=== PATIENT | male | born 1940 | race Hispanic/Latino ===

== ENCOUNTER → 2018-01-30 | Outpatient (CLI) | payer OTHER ==
[~2018-01-30] MED LIST: ACET-66 PO; AMLO10TA2 PO; FOLI1TAB85 PO; FURO40TA5 PO; INDO25CA16 PO; LOPE2 PO; LOSA100T29 PO; POTA10CA44 PO; PRAV40TA3 PO
== END | disposition home or self-care (01) ==
LOC: RAH 14:40
PROVIDERS: ATTEND Nurse Practitioner Family
DX: M47.26 Other spondylosis with radiculopathy, lumbar region (principal); M51.16 Intervertebral disc disorders with radiculopathy, lumbar region; M48.061 Spinal stenosis, lumbar region without neurogenic claudication; M25.551 Pain in right hip; M25.552 Pain in left hip; K57.30 Diverticulosis of large intestine without perforation or abscess without bleeding; I12.9 Hypertensive chronic kidney disease with stage 1 through stage 4 chronic kidney disease, or unspecified chronic kidney disease; N18.3 Chronic kidney disease, stage 3 (moderate); K21.9 Gastro-esophageal reflux disease without esophagitis
CPT/HCPCS: 72148; 73700

== ENCOUNTER → 2018-05-18 | Outpatient (CLI) | payer OTHER ==
[~2018-05-18] MED LIST changes: -AMLO10TA2 PO; +AMLO10TA6 PO; +LOSA100T20 PO; -LOSA100T29 PO
== END | disposition home or self-care (01) ==
LOC: RAH 07:56
PROVIDERS: ATTEND Nurse Practitioner
DX: R10.10 Upper abdominal pain, unspecified (principal)
CPT/HCPCS: 74181

== ENCOUNTER → 2018-06-25 | Outpatient (CLI) | payer OTHER | END | disposition home or self-care (01) | LOC: RAH 12:05 | PROVIDERS: ATTEND Nurse Practitioner | DX: M25.78 Osteophyte, vertebrae (principal); I10 Essential (primary) hypertension; K21.9 Gastro-esophageal reflux disease without esophagitis | CPT/HCPCS: 72100 ==

== ENCOUNTER → 2022-09-08 | Outpatient (CLI) | payer OTHER ==
[~2022-09-08] MED LIST changes: +AMLO-258 PO; -AMLO10TA6 PO; +INDO-15 PO; -INDO25CA16 PO; -LOSA100T20 PO; +LOSA100T58 PO; -POTA10CA44 PO; +POTA10CA45 PO
== END | disposition home or self-care (01) ==
LOC: SHCH 08:30
PROVIDERS: ATTEND Student in an Organized Health Care Education/Training Program
DX: I07.1 Rheumatic tricuspid insufficiency (principal); R00.2 Palpitations
CPT/HCPCS: 93306

== ENCOUNTER → 2022-09-22 | Outpatient (CLI) | payer OTHER ==
[2022-09-22 16:45] LABS: ALBUMIN 3.3 g/dL (3.5-5.0); CREATININE 4.7 mg/dL (0.5-1.5); POTASSIUM 3.9 mmol/L (3.5-5.1); TOTAL PROTEIN, SERUM 6.9 g/dL (6.0-8.3)
== END | disposition home or self-care (01) ==
LOC: LAB 13:32
PROVIDERS: ATTEND Student in an Organized Health Care Education/Training Program
DX: I10 Essential (primary) hypertension (principal)
CPT/HCPCS: 36415; 80053

== ENCOUNTER 2025-05-05 09:28 | Inpatient (IN) | payer OTHER ==
[2025-05-05] VITALS (12 sets, daily range): BP systolic 105–142; BP diastolic 36–54; PULSE 68–79; RESP 16–18; TEMP 97.7
[~2025-05-05] VITALS: Ht 162.6 cm; Wt 68.0 kg
[~2025-05-05 09:28] MED LIST changes: -LOSA100T58 PO; +LOSA100T59 PO; -POTA10CA45 PO; +POTA10CA95 PO; -PRAV40TA3 PO; +PRAV40TA62 PO
[2025-05-05 10:15] LABS: IMMATURE GRANULOCYTE ABSOLUTE 0.13 K/uL (0-1); NUCLEATED RED BLOOD CELLS 0.0 % (0.0-0.19); PLATELET COUNT (AUTO) 112 K/uL (130-400); RED BLOOD CELL COUNT(AUTO) 2.83 MIL/uL (4.50-6.20); RED CELL DISTRIBUTION WIDTH 14.3 % (11.0-15.5); WHITE BLOOD COUNT (AUTO) 18.8 K/uL (4.8-10.8)
[2025-05-05 10:29] LABS: GLOMERULAR FILTR. RATE CALC 5.0 mL/min (>90); GLUCOSE,RANDOM 79.0 mg/dL (70-105); SODIUM SERUM 129.0 mmol/L (136-145); UREA NITROGEN, BLOOD 63.0 mg/dL (7-18)
[2025-05-05 10:31] LABS: CREATININE 9.9 mg/dL (0.5-1.3)
[2025-05-05] MEDS: ZOSYN 3.375GM +NS 50ML IV STA (11:08)
[2025-05-05] MEDS: 0.9% NACL 250ML 250 ML IV ONE (11:10)
--- NOTE | 2025-05-05 11:12 | EKG ---
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
[2025-05-05 11:36] LABS: LACTATE DEHYDROGENASE 971.0 U/L (81-234); LYMPHOCYTES % (MANUAL) 36 % (22-44); MAN.DIFF COMMENT-IMPRESSION MANUAL DIFFERENTIAL; MONOCYTES % (MANUAL) 4 % (2-9); REACTIVE LYMPHOCYTES 4 % (0-0); SEGMENTED NEUTROPHILS % 56 % (40-70)
[2025-05-05 11:37] LABS: PLATELET MORPHOLOGY COMMENT SLIGHTLY DECREASED
[2025-05-05 11:45] LABS: ASPARTATE AMINOTRANSFERASE 114.0 U/L (10-37); CREATINE KINASE, TOTAL 63.0 U/L (21-232); TOTAL PROTEIN, SERUM 7.6 g/dL (6.0-8.3)
--- NOTE | 2025-05-05 11:46 | NUR ---
DR CHARLES WAS IN TO SEE/ASSESS THE PT.
[2025-05-05] MEDS ORDERED: RENAL DOSE IV SCH (12:00)
[2025-05-05] MEDS ORDERED: VANCOMYCIN PROTOCOL PER PHARMACY IV SCH (12:00)
[2025-05-05 12:01] LABS: INR 1.31 (0.85-1.15)
--- NOTE | 2025-05-05 12:02 | HMCIMG ---
EXAM: CR Chest, 1 View. CLINICAL HISTORY: fever COMPARISON: None provided. FINDINGS: Vascular stent overlies the left subclavian vessel. LUNGS: There is no mass, infiltrate, or acute pulmonary abnormality. PLEURAL SPACES: No evidence of pleural effusion or pneumothorax. MEDIASTINUM: Cardiac size and mediastinal contours within normal limits. BONES: No aggressive appearing osseous lesion seen. IMPRESSION: No acute cardiopulmonary pathology is evident. /[place]
--- NOTE | 2025-05-05 12:17 | HP ---
[facility] HISTORY [facility] PHYSICAL Date of Service: May 05, 2025 Time of Service: 12:06 HISTORY OF PRESENT ILLNESS: Date of service: 05/05/2025, patient was seen in ER room one This is a 85-year-old male with underlying history of ESRD, hypertension, hyperlipidemia, anemia, who presented to the ER for further evaluation of generalized weakness, fevers since April 28, poor oral intake, and generalized debility ongoing for about a week. Patient's son was present at bedside who assisted with further history, son states that since patient's birthday about a week ago he has been having daily fevers, poor oral intake, congestion, diarrhea and increased debility. He states that last month, patient fell and had a suspected right patellar fracture which is being treated conservatively by orthopedist as outpatient. Has noticed that he has been having progressive lower extremity swelling and has been needing to use of walker to ambulate. Son reports that patient has been having 3-4 episodes of loose stool. Denies recent use of antibiotics. Patient was seen in [facility] ER several days ago where he was noted to be negative for flu and COVID and urinalysis he was told was also negative. Son reports that patient has been having left groin pain as well as possible ur ethral discharge as well. Patient has been maintained on Monday, , Monday dialysis session. His last session of dialysis was on Monday last week. Patient denies significant shortness of breath or productive cough. Son reports that legs have been significantly swollen as well. Patient is followed by Dr. Sharp as outpatient with Cardiology and has been upcoming appointment for a possible stress test. He is also being followed by [place] physician and is supposed to have a bone scan done as outpatient. Denies being previously diagnosed with malignancy. On presentation to the hospital, patient was noted to be febrile with T-max of 101.5 F, heart rate of 81, blood pressure of 154/63. [place] [address], hemoglobin of 10.1, platelet count of 196312, MCV of 106.4. BMP showed sodium of 129, potassium 3.4, chloride of 9100, BUN of 63, creatinine of 9.9. Liver function tests showed total bilirubin of 1.9, AST of 114, ALT of 65, alkaline phosphatase of 152, LDH of 971. Chest x-ray showed no acute infiltrates. Patient will be admitted for further treatment and management of sepsis, we will assess further source of sepsis pending urinalysis, we will also obtain a CT of the abdomen pelvis for further evaluation. We will see how patient progresses over the next 72 hours. Patient is very debilitated over the last one week and we will have case management assess for further discharge planning. Son has requested full interventions for the patient. REVIEW OF SYSTEMS CONSTITUTIONAL: Fevers, chills, malaise, poor oral intake NEUROLOGICAL: Generalized weakness, reports having had a fall about a month ago ENT: No hearing loss, otalgia, otorrhea, rhinitis, rhinorrhea, hoarseness, or sore throat. CARDIOVASCULAR: Denies any exertional angina, dyspnea on exertion, orthopnea, paroxysmal nocturnal dyspnea, palpitations, life-threatening arrhythmias, claudication. PULMONARY: No active shortness of breath, mild shortness of breath last couple of days SLEEP: Denies morning headaches, daytime somnolence or napping. Denies d ifficulty falling asleep, staying asleep, waking from sleep. Denies knowledge of snoring. GASTROINTESTINAL: Reports having loose stool, no significant abdominal pain GENITOURINARY: Reports having urinary urgency ENDOCRINOLOGIC: Denies polyuria, polydipsia, polyphagia or heat/cold intolerances. HEMATOLOGIC: Reports having bruising ONCOLOGIC: Denies personal history of malignancy. DERMATOLOGIC: Significant bilateral lower extremity swelling PSYCHIATRIC: Denies any suicidal or homicidal ideation. Denies hallucinations. PAST MEDICAL HISTORY: ESRD, hypertension, hyperlipidemia, anemia, recent history of sacral decubitus ulcer PAST SURGICAL HISTORY: History of cholecystectomy PAST SOCIAL HISTORY: Denies active smoking or alcohol consumption, patient has been debilitated over the last one week and has been mostly in bed, uses a walker to ambulate FAMILY HISTORY: Denies pertinent family history Allergies: No known drug allergies Home medications: Family will be bringing list of home medications to be reconciled and updated, patient reports being on lisinopril 20 mg daily, metoprolol succinate 50 mg daily as well Coded Allergies: No Known Drug Allergies (Unverified Allergy, Unknown, 05/05/25) PHYSICAL EXAM GENERAL APPEARANCE: The patient is awake, alert, and oriented, in no acute cardiopulmonary distress. NEUROLOGICAL: Cranial nerves II-XII grossly intact. Motor is 5/5 in bilateral upper and lower extremities proximal to distal. No sensory deficits. HEENT: Face is symmetric. Pupils are equal and reactive. Extraocular movements are intact. NECK: Supple. No JVD. No thyromegaly. No submental, submandibular, pre- /postauricular, occipital or supraclavicular lymphadenopathy. CHEST: Normal chest expansion. No Telemetry. LUNGS: Absence of any rales, rhonchi or any wheezing. CARDIOVASCULAR: Regular. S1 and S2 normal. Murmur noted on 2nd right upper sternal longer ABDOMEN: Soft, nontender, and nondistended. There is no rebound, voluntary guarding, or rigidity. : Deferred. No Bernal. EXTREMITIES: Both lower extremities are edematous with 2+ pitting edema SKIN: Son reports having history of sacral ulcer as well Vital Sign (Last 24 Hours) 05/05/25 10:42 Temp 97.9 Pulse 78 Resp 18 B/P (MAP) 141/62 Pulse Ox 96 O2 Delivery Room Air* O2 Flow Rate 0 FiO2 21 LABS: Laboratory: Test 05/05/25 10:40 05/05/25 10:06 Range/Units SARS-CoV-2 Antigen (Rapid) PRESUMPTIVE NEGATIVE NEGATIVE White Blood Count 18.8 H 4.8-10.8 K/uL Red Blood Count 2.83 L 4.50-6.20 MIL/uL Hemoglobin 10.1 L 14.0-18.0 g/dL Hematocrit 30.1 L 42-54 % Mean Corpuscular Volume 106.4 H 79-99 fL Mean Corpuscular Hemoglobin 35.7 H 27.0-33.0 pg Mean Corpuscular Hemoglobin Concent 33.6 32.0-36.0 g/dL Red Cell Distribution Width 14.3 11.0-15.5 % Platelet Count 112 L 130-400 K/uL Mean Platelet Volume 11.4 H 7.5-10.5 fL Immature Granulocyte % (Auto) 0.7 0-1 % Neutrophils (%) (Auto) 39.5 L 40.0-77.0 % Lymphocytes (%) (Auto) 47.1 21.0-51.0 % Monocytes (%) (Auto) 10.2 3.0-13.0 % Eosinophils (%) (Auto) 1.2 0.0-8.0 % Basophils (%) (Auto) 1.3 0.0-5.0 % Neutrophils # (Auto) 7.4 1.8-7.7 K/uL Lymphocytes # (Auto) 8.8 H 1.0-4.8 K/uL Monocytes # (Auto) 1.9 H 0.1-1.0 K/uL Eosinophils # (Auto) 0.22 0.00-0.70 K/uL Basophils # (Auto) 0.24 H 0.00-0.20 K/uL Absolute Immature Granulocyte (auto 0.13 0-1 K/uL Segmented Neutrophils % 56 40-70 % Lymphocytes % (Manual) 36 22-44 % Monocytes % (Manual) 4 2-9 % Nucleated Red Blood Cells 0.0 0.0-0.19 % Differential Comment MANUAL DIFFERENTIAL Reactive Lymphocytes 4 H 0-0 % White Cell Morphology Comment See comments Platelet Morphology Comment SLIGHTLY DECREASED Red Blood Cell Morphology MACROCYTIC 1+ Erythrocyte Sedimentation Rate 26 H 0-20 MM/HR Prothrombin Time 13.5 H 9.6-11.6 SEC Prothromb Time International Ratio 1.31 H 0.85-1.15 Activated Partial Thromboplast Time 39.7 H 26.3-35.5 SEC Sodium Level 129 L 136-145 mmol/L Potassium Level 3.4 L 3.5-5.1 mmol/L Chloride Level 91 L 101-111 mmol/L Carbon Dioxide Level 27 21-32 mmol/L Blood Urea Nitrogen 63 H 7-18 mg/dL Creatinine 9.9 *H 0.5-1.3 mg/dL Glomerular Filtration Rate Calc 5 >90 mL/min Random Glucose 79 70-105 mg/dL Lactic Acid Level 2.3 0.8-2.5 mmol/L Total Calcium 8.4 L 8.5-10.1 mg/dL Total Bilirubin 1.9 H 0.2-1.0 mg/dL Direct Bilirubin 1.1 H 0.0-0.3 mg/dL Aspartate Amino Transf (AST/SGOT) 114 H 10-37 U/L Alanine Aminotransferase (ALT/SGPT) 65 12-78 U/L Alkaline Phosphatase 152 H 50-136 U/L Lactate Dehydrogenase 971 H 81-234 U/L Total Creatine Kinase 63 21-232 U/L Troponin I High Sensitivity 39 4-75 ng/L C-Reactive Protein, Quantitative 108.00 H 0.5-3.0 mg/L Total Protein 7.6 6.0-8.3 g/dL Albumin 2.7 L 3.5-5.0 g/dL Procalcitonin 4.00 H 0.05-0.5 ng/mL Current Medications Medications (Trade) Dose Ordered Sig/Preeti Route PRN Reason Start Time Stop Time Status Last Admin Dose Admin Acetaminophen (TYLenol 325MG TAB) 650 mg Q6H PRN PO MILD PAIN (1-3) 05/05/25 12:00 06/04/25 11:59 Famotidine (Pepcid 20mg Tab) 20 mg Q48H PO 05/05/25 21:00 06/04/25 20:59 Heparin Sodium (Porcine) (HEParin 5,000 UNIT VIAL) 5,000 unit BID SQ 05/05/25 21:00 06/04/25 20:59 Ondansetron HCl (zoFRAN 4MG INJ) 4 mg Q6H PRN IVP NAUSEA/VOMITING 05/05/25 12:00 06/04/25 11:59 Piperacillin Sod/ Tazobactam Sod (Zosyn 3.375gm+NS 50ml) 3.375 gm ONCE STAT IV 05/05/25 09:47 05/05/25 10:52 DC 05/05/25 11:08 3.375 GM Piperacillin Sod/ Tazobactam Sod (Zosyn 3.375gm+NS 50ml) 3.375 gm Q12H IVPB 05/05/25 22:00 05/15/25 21:59 Vancomycin HCl (Vancomycin Protocol) 1 each AD IV 05/05/25 12:00 05/19/25 11:59 UNV Vitamin B Complex/ Vit C/Folic Acid (Nephrovite Tablet) 1 cap DAILY PO 05/06/25 09:00 06/05/25 08:59 DIAGNOSTICS / RADIOLOGY: Chest x-ray Shows no acute infiltrate ASSESSMENT: Sepsis, POA Thrombocytopenia, mild, POA Anemia of renal failure, POA Macrocytosis, POA Hyponatremia, POA Hypokalemia, POA For hepatitis, mild, POA Sacral decubitus ulcer, POA Significant leukocytosis, POA Significant debility/frailty/deconditioning, POA Bilateral lower extremity edema, rule out DVT, POA Recent history of right knee patellar fracture, POA Rule out active urinary tract infection, POA Acute diarrhea, POA Underlying history of ESRD missing last two sessions of hemodialysis as outpatient, POA Hypertension, POA Hyperlipidemia, POA Cardiac murmur, POA PLAN: Patient will be admitted to cardiac telemetry floor We will start broad-spectrum antibiotics with vancomycin/Zosyn Follow up results of blood culture, urinalysis, urine culture, C diff panel/GI PCR panel We will follow up CT abdomen pelvis without contrast for further evaluation of left groin pain as well as diarrhea Minimize IV fluids due to ESRD status and patient has not received last two hemodialysis session as outpatient We we will request consultation with Nephrology We will request consultation with Infectious Disease, Hematology, and wound care We will obtain a bilateral lower extremity venous ultrasound, to rule out DVT We will obtain a 2D echocardiogram, to assess for valvulopathy and assess LV EF Home medications were reconciled and updated Patient is very debilitated, we will request physical therapy consultation, son has stated that patient previously has declined any rehab or SNF, we will have case management assist with discharge planning/discharge needs Patient will be turned q.2 hours, patient will be placed on air bed, wound care consult will be requested for patient's history of sacral decubitus ulcer We will labs will be repeated in the morning All antibiotics were renally dosed We will keep patient on DVT prophylaxis with heparin, GI prophylaxis with Pepcid Reports we will patient is supposed to have a outpatient bone scan done, denies being diagnosed with previous history of malignancy, we will have Dr. Landers follow up with the patient Prognosis: Guarded Plan of care was discussed with patient's son at bedside, Manuel Rayo MD Advanced Care Planning: Which of the following were discussed: Hospice care: Yes __ No _X_ Therapeutic options: Yes _X_ No __ Advance directives: Yes _X_ No __ Other discussions: Discussed with who?: Patient Voluntary nature of this service was explained to the patient? Yes _x_ No __ Amount of time spent: 20 minutes MANUEL RAYO MD May 05, 2025 12:16
--- NOTE | 2025-05-05 12:40 | HMCIMG ---
EXAM: CT Head Without IV contrast. CLINICAL HISTORY: recent fall last month, sepsis, weakness TECHNIQUE: Axial computed tomography images of the head/brain without intravenous contrast. COMPARISON: None provided. FINDINGS: BRAIN: No evidence of acute hemorrhage. No mass lesion. No CT evidence for acute territorial infarct. No midline shift or extra-axial collections. Generalized cerebral atrophy with chronic white matter ischemic changes VENTRICLES: No hydrocephalus. ORBITS: The orbits are unremarkable. SINUSES AND MASTOIDS: The paranasal sinuses and mastoid air cells are clear. BONES: No fracture. SOFT TISSUES: Unremarkable. IMPRESSION: 1. No acute intracranial findings. 2. Chronic ischemic and atrophic changes. /[place]
--- NOTE | 2025-05-05 12:50 | NUR ---
DR MOORE HEMATOLOGY AT BEDSIDE FOR CONSULT
--- NOTE | 2025-05-05 13:00 | NUR ---
EPISODE OF DIARRHEA
--- NOTE | 2025-05-05 13:19 | HMCIMG ---
EXAM: CT Abdomen and Pelvis Without IV contrast CLINICAL HISTORY: sepsis, left groin pain, diarrhea, Hx of ESRD TECHNIQUE: Axial computed tomography images of the abdomen and pelvis without intravenous contrast. CONTRAST: No IV contrast. COMPARISON: None provided. FINDINGS: LUNG BASES: The lung bases appear clear. No pleural effusions are seen. LIVER: The liver is enlarged in size measuring approximately 17 cm GALLBLADDER AND BILE DUCTS: No biliary ductal dilatation is evident. Post-cholecystectomy status. PANCREAS: Unremarkable. SPLEEN: Unremarkable. ADRENAL GLANDS: Unremarkable. KIDNEYS, URETERS, AND BLADDER: There is no hydronephrosis or hydroureter. No urinary calculi are seen. Both kidney is small in size. The right kidney measures approximately 6.5 x 3.5 mm The left kidney measures approximately 7.5 x 4 cm. Mild smooth circumferential thickening in the urinary bladder wall measuring approximately 4 mm suggests cystitis Subcentimeter-sized simple cortical cyst in both kidneys. STOMACH AND BOWEL: Unremarkable appearance of the stomach. No evidence of bowel obstruction. No evidence suggesting enteritis or colitis. Diverticula in the third part of the duodenum measuring approximately 3.5 x 2.5 cm. Diverticulae in the descending and sigmoid colon. APPENDIX: No evidence of acute appendicitis on CT examination. PERITONEUM: No free fluid. No free air. LYMPH NODES: No lymphadenopathy is evident. REPRODUCTIVE: The prostate gland is enlarged in size, measuring approximately 4.9 x 3.7 x 4.6 cm, volume of approximately 43.4 cc VASCULATURE: No evidence of abdominal aortic aneurysm. BONES: No aggressive appearing osseous lesion. No acute osseous pathology evident. Degenerative changes in the spine, more pronounced at L1-L2 Mild levoscoliosis IMPRESSION: 1. No acute intra-abdominal or pelvic pathology. 2. Bilateral small kidneys, suggestive of chronic renal disease. 3. Mild bladder wall thickening, possibly representing cystitis. 4. Duodenal diverticulum in the third part, measuring approximately 3.5 x 2.5 cm. /[place]
--- NOTE | 2025-05-05 13:56 | NUR ---
DR MCGEE AT BEDSIDE FOR NEPRHO CONSULT
[2025-05-05] MEDS: VANCOMYCIN 1.25 GM/250 ML BAG 250 ML IV ONE (14:10)
--- NOTE | 2025-05-05 14:11 | HMCIMG ---
EXAM: US for Deep Venous Thrombosis, bilateral Lower Extremity. CLINICAL HISTORY: Leg Pain and Swelling TECHNIQUE: Real-time ultrasound scan of the veins of the bilateral lower extremity with color Doppler flow, spectral waveform analysis and compression. COMPARISON: None provided. FINDINGS: DEEP VEINS: Echogenic content within the left popliteal vein with loss of compressibility, suggestive of thrombosis. The bilateral common femoral, superficial femoral, and the right popliteal veins are echolucent and compressible. The visualized calf veins appear patent. SOFT TISSUES: No popliteal fossa cyst or other abnormalities. IMPRESSION: 1. Left popliteal vein thrombosis. /[place]
--- NOTE | 2025-05-05 14:16 | CONS ---
CONSULT NOTE: This is a 85-year-old male with underlying history of ESRD, hypertension, hyperlipidemia, anemia, who presented to the ER for further evaluation of generalized weakness, fevers since April 28, poor oral intake, and generalized debility ongoing for about a week. Patient's son was present at bedside who assisted with further history, son states that since patient's birthday about a week ago he has been having daily fevers, poor oral intake, congestion, diarrhea and increased debility. He states that last month, patient fell and had a suspected right patellar fracture which is being treated conservatively by orthopedist as outpatient. Has noticed that he has been having progressive lower extremity swelling and has been needing to use of walker to ambulate. Son reports that patient has been having 3-4 episodes of loose stool. Denies recent use of antibiotics. Patient was seen in [facility] ER several days ago where he was noted to be negative for flu and COVID and urinalysis he was told was also negative. Son reports that patient has been having left groin pain as well as possible urethral discharge as well. Patient has been maintained on Monday, , Monday dialysis session. His last session of dialysis was on Monday last week. Patient denies significant shortness of breath or productive cough. Son reports that legs have been significantly swollen as well. Patient is followed by Dr. Sharp as outpatient with Cardiology and has been upcoming appointment for a possible stress test. He is also being followed by [place] physician and is supposed to have a bone scan done as outpatient. Denies being previously diagnosed with malignancy. REVIEW OF SYSTEMS CONSTITUTIONAL: Fevers, chills, malaise, poor oral intake NEUROLOGICAL: Generalized weakness, reports having had a fall about a month ago ENT: No hearing loss, otalgia, otorrhea, rhinitis, rhinorrhea, hoarseness, or sore throat. CARDIOVASCULAR: Denies any exertional angina, dyspnea on exertion, orthopnea, paroxysmal nocturnal dyspnea, palpitations, life-threatening arrhythmias, claudication. PULMONARY: No active shortness of breath, mild shortness of breath last couple of days SLEEP: Denies morning headaches, daytime somnolence or napping. Denies difficulty falling asleep, staying asleep, waking from sleep. Denies knowledge of snoring. GASTROINTESTINAL: Reports having loose stool, no significant abdominal pain GENITOURINARY: Reports having urinary urgency ENDOCRINOLOGIC: Denies polyuria, polydipsia, polyphagia or heat/cold intolerances. HEMATOLOGIC: Reports having bruising ONCOLOGIC: Denies personal history of malignancy. DERMATOLOGIC: Significant bilateral lower extremity swelling PSYCHIATRIC: Denies any suicidal or homicidal ideation. Denies hallucinations. PAST MEDICAL HISTORY: ESRD, hypertension, hyperlipidemia, anemia, recent history of sacral decubitus ulcer PAST SURGICAL HISTORY: History of cholecystectomy PAST SOCIAL HISTORY: Denies active smoking or alcohol consumption, patient has been debilitated over the last one week and has been mostly in bed, uses a walker to ambulate FAMILY HISTORY: Denies pertinent family history Allergies: No known drug allergies Home medications: Family will be bringing list of home medications to be reconciled and updated, patient reports being on lisinopril 20 mg daily, metoprolol succinate 50 mg daily as well Coded Allergies: No Known Drug Allergies (Unverified Allergy, Unknown, 05/05/25) PHYSICAL EXAM GENERAL APPEARANCE: The patient is awake, alert, and oriented, in no acute cardiopulmonary distress. NEUROLOGICAL: Cranial nerves II-XII grossly intact. Motor is 5/5 in bilateral upper and lower extremities proximal to distal. No sensory deficits. HEENT: Face is symmetric. Pupils are equal and reactive. Extraocular movements are intact. NECK: Supple. No JVD. No thyromegaly. No submental, submandibular, pre- /postauricular, occipital or supraclavicular lymphadenopathy. CHEST: Normal chest expansion. No Telemetry. LUNGS: Absence of any rales, rhonchi or any wheezing. CARDIOVASCULAR: Regular. S1 and S2 normal. Murmur noted on 2nd right upper sternal longer ABDOMEN: Soft, nontender, and nondistended. There is no rebound, voluntary guarding, or rigidity. : Deferred. No Bernal. EXTREMITIES: Both lower extremities are edematous with 2+ pitting edema SKIN: Son reports having history of sacral ulcer as well Assessment 1. Anemia 2. Mild thrombocytopenia 3. Chronic renal failure with the patient on hemodialysis 4. Leukocytosis 5. Lower extremity edema bilaterally suspicious for possible DVT 6. Hypertension 7. Hyperlipidemia Plan 1. Peripheral blood smear showed red blood cells to be normocytic normochromic. There was no fragment cell or schistocyte. There is no teardrop cell. There is no pelger-Huet cell. White blood cell with no blasts. Manual platelet count is normal 2. There was hypersegmented neutrophils. This patient to be started on folic acid 1 mg p.o. daily and vitamin B12 1000 mcg p.o. daily. 3. There is rouleaux phenomena. We will ask for SPEP, and free light chain. If there is monoclonal protein we will do a bone marrow biopsy. 4. Doppler ultrasound was done. If the patient have DVTs this patient could be started on heparin drip. 5. Continue antibiotic treatment as per primary 6. It seems the patient was found to have some lesion to the bone. [facility] see if [facility] could give me more information about that. This could be may be due to multiple myeloma so we will be follow-up with the result of SPEP and free light chain. There is no need for UPEP especially with the patient on hemodialysis. 7. If the patient did not have [facility] with the [facility] maybe we could ask for 1 to be done here. Laboratory Tests Test 05/05/25 10:06 05/05/25 10:40 05/05/25 13:40 White Blood Count 18.8 K/uL (4.8-10.8) H Red Blood Count 2.83 MIL/uL (4.50-6.20) L Hemoglobin 10.1 g/dL (14.0-18.0) L Hematocrit 30.1 % (42-54) L Mean Corpuscular Volume 106.4 fL (79-99) H Mean Corpuscular Hemoglobin 35.7 pg (27.0-33.0) H Mean Corpuscular Hemoglobin Concent 33.6 g/dL (32.0-36.0) Red Cell Distribution Width 14.3 % (11.0-15.5) Platelet Count 112 K/uL (130-400) L Mean Platelet Volume 11.4 fL (7.5-10.5) H Immature Granulocyte % (Auto) 0.7 % (0-1) Neutrophils (%) (Auto) 39.5 % (40.0-77.0) L Lymphocytes (%) (Auto) 47.1 % (21.0-51.0) Monocytes (%) (Auto) 10.2 % (3.0-13.0) Eosinophils (%) (Auto) 1.2 % (0.0-8.0) Basophils (%) (Auto) 1.3 % (0.0-5.0) Neutrophils # (Auto) 7.4 K/uL (1.8-7.7) Lymphocytes # (Auto) 8.8 K/uL (1.0-4.8) H Monocytes # (Auto) 1.9 K/uL (0.1-1.0) H Eosinophils # (Auto) 0.22 K/uL (0.00-0.70) Basophils # (Auto) 0.24 K/uL (0.00-0.20) H Absolute Immature Granulocyte (auto 0.13 K/uL (0-1) Segmented Neutrophils % 56 % (40-70) Lymphocytes % (Manual) 36 % (22-44) Monocytes % (Manual) 4 % (2-9) Nucleated Red Blood Cells 0.0 % (0.0-0.19) Differential Comment MANUAL DIFFERENTIAL Reactive Lymphocytes 4 % (0-0) H White Cell Morphology Comment See comments Platelet Morphology Comment SLIGHTLY DECREASED Red Blood Cell Morphology MACROCYTIC 1+ Erythrocyte Sedimentation Rate 26 MM/HR (0-20) H Prothrombin Time 13.5 SEC (9.6-11.6) H Prothromb Time International Ratio 1.31 (0.85-1.15) H Activated Partial Thromboplast Time 39.7 SEC (26.3-35.5) H Sodium Level 129 mmol/L (136-145) L Potassium Level 3.4 mmol/L (3.5-5.1) L Chloride Level 91 mmol/L (101-111) L Carbon Dioxide Level 27 mmol/L (21-32) Blood Urea Nitrogen 63 mg/dL (7-18) H Creatinine 9.9 mg/dL (0.5-1.3) *H Glomerular Filtration Rate Calc 5 mL/min (>90) Random Glucose 79 mg/dL (70-105) Lactic Acid Level 2.3 mmol/L (0.8-2.5) 2.1 mmol/L (0.8-2.5) Total Calcium 8.4 mg/dL (8.5-10.1) L Total Bilirubin 1.9 mg/dL (0.2-1.0) H Direct Bilirubin 1.1 mg/dL (0.0-0.3) H Aspartate Amino Transf (AST/SGOT) 114 U/L (10-37) H Alanine Aminotransferase (ALT/SGPT) 65 U/L (12-78) Alkaline Phosphatase 152 U/L (50-136) H Lactate Dehydrogenase 971 U/L (81-234) H Total Creatine Kinase 63 U/L (21-232) Troponin I High Sensitivity 39 ng/L (4-75) C-Reactive Protein, Quantitative 108.00 mg/L (0.5-3.0) H Total Protein 7.6 g/dL (6.0-8.3) Albumin 2.7 g/dL (3.5-5.0) L Vitamin B12 Level 1759 pg/mL (193-986) H Folic Acid (LAB) 7.50 ng/mL (2-20) Procalcitonin 4.00 ng/mL (0.05-0.5) H SARS-CoV-2 Antigen (Rapid) PRESUMPTIVE NEGATIVE AZAEL MOORE MD May 05, 2025 14:16
--- NOTE | 2025-05-05 14:51 | CONS ---
NEPHROLOGY CONSULTATION NOTE Date/Time Patient Seen: May 05, 2025 9262 Reason for Consultation: Generalized body weakness, fever, fluid overload, end- stage renal disease HISTORY OF PRESENT ILLNESS: This is an 85-year-old male with underlying history of ESRD on dialysis Monday, hypertension, hyperlipidemia, anemia, He presented to the ER for further evaluation of generalized weakness, fevers since April 28, poor oral intake, and generalized debility ongoing for about a week. Last dialysis session was done on Monday. He was admitted further treatment and management of sepsis. Imaging studies were noted. He was seen in the emergency room No family at the bedside Prognosis remains guarded REVIEW OF SYSTEMS: GENERAL: Positive for generalized weakness and fever NEUROLOGIC: Negative for any blurry vision, blind spots, double vision, facial asymmetry, dysphagia, dysarthria, hemiparesis, hemisensory deficits, vertigo, ataxia. HEENT: Negative for any head trauma, neck trauma, neck stiffness, photophobia, phonophobia, sinusitis, rhinitis. CARDIAC: Negative for any chest pain, dyspnea on exertion, paroxysmal nocturnal dyspnea, peripheral edema. PULMONARY: Negative for any shortness of breath, wheezing, COPD, or TB exposure. GASTROINTESTINAL: Negative for any abdominal pain, nausea, vomiting, bright red blood per rectum, melena. GENITOURINARY: Negative for any dysuria, hematuria, incontinence. INTEGUMENTARY: Negative for any rashes, cuts, insect bites. RHEUMATOLOGIC: Negative for any joint pains, photosensitive rashes, history of vasculitis or kidney problems. HEMATOLOGIC: Negative for any abnormal bruising, frequent infections or bleeding. PAST MEDICAL HISTORY: End-stage renal disease, hypertension, hyperlipidemia, anemia PAST SURGICAL HISTORY: Cholecystectomy, av access PAST SOCIAL HISTORY: Denies use of alcohol, tobacco or illicit drugs FAMILY HISTORY: Noncontributory PHYSICAL EXAM: GENERAL: Alert and oriented x 3. No acute distress. Well-nourished. EYES: EOMI. Anicteric. HENT: Moist mucous membranes. No scleral icterus. No cervical lymphadenopathy. LUNGS: Clear to auscultation bilaterally. No accessory muscle use. CARDIOVASCULAR: Regular rate and rhythm. No murmur. No JVD. ABDOMEN: Soft, non-tender and non-distended. No palpable masses. EXTREMITIES: No edema. Non-tender. SKIN: No rashes or lesions. Warm. NEUROLOGIC: No focal neurological deficits. CN II-XII grossly intact, but not individually tested. PSYCHIATRIC: Cooperative. Appropriate mood and affect. MEDICATIONS: [ ] Current Medications Medications (Trade) Dose Ordered Sig/Preeti Route PRN Reason Start Time Stop Time Status Last Admin Dose Admin Acetaminophen (TYLenol 325MG TAB) 650 mg Q6H PRN PO MILD PAIN (1-3) 05/05/25 12:00 06/04/25 11:59 Atorvastatin Calcium (LIPItor 40MG) 40 mg HS PO 05/05/25 21:00 06/04/25 20:59 Famotidine (Pepcid 20mg Tab) 20 mg Q48H PO 05/05/25 21:00 05/05/25 13:50 DC Heparin Sodium (Porcine) (HEParin 5,000 UNIT VIAL) *calculation based on ACTUAL B... AD PRN IV HEPARIN PROTOCOL 05/05/25 15:00 06/04/25 14:59 Heparin Sodium (Porcine) (HEParin 5,000 UNIT VIAL) 5,000 unit BID SQ 05/05/25 21:00 05/05/25 13:50 DC Heparin Sodium/ Dextrose 250 ml @ 0 mls/hr Q6H IV 05/05/25 15:00 06/04/25 14:59 Hydralazine HCl (APRESOLine 20MG INJ) 5 mg Q6H PRN IV ADMINISTER FOR SBP > 160 05/05/25 13:00 06/04/25 12:59 Lisinopril (Prinivil 20mg) 20 mg DAILY PO 05/06/25 09:00 06/05/25 08:59 Metoprolol Succinate (TopROL XL) 50 mg DAILY PO 05/06/25 09:00 06/05/25 08:59 Ondansetron HCl (zoFRAN 4MG INJ) 4 mg Q6H PRN IVP NAUSEA/VOMITING 05/05/25 12:00 06/04/25 11:59 Pantoprazole Sodium (PROTonix 40MG INJ) 40 mg Q24H IVP 05/05/25 14:00 06/04/25 13:59 05/05/25 14:36 40 MG Piperacillin Sod/ Tazobactam Sod (Zosyn 3.375gm+NS 50ml) 3.375 gm ONCE STAT IV 05/05/25 09:47 05/05/25 10:52 DC 05/05/25 11:08 3.375 GM Piperacillin Sod/ Tazobactam Sod (Zosyn 3.375gm+NS 50ml) 3.375 gm Q12H IVPB 05/05/25 22:00 05/15/25 21:59 Vancomycin HCl 100 ml @ 100 mls/hr TTHSPHD IV 05/06/25 16:00 05/16/25 15:59 Vancomycin HCl (Vancomycin Protocol) 1 each AD IV 05/05/25 12:00 05/19/25 11:59 Vitamin B Complex/ Vit C/Folic Acid (Nephrovite Tablet) 1 cap DAILY PO 05/06/25 09:00 06/05/25 08:59 Vital Signs (last 8hr) Date Time Temp Pulse Resp B/P (MAP) Pulse Ox O2 Delivery O2 Flow Rate FiO2 05/05/25 10:42 97.9 78 18 141/62 96 Room Air* 0 21 05/05/25 09:35 101.5 81 20 154/63 99 Room Air DIAGNOSTICS / RADIOLOGY: [address] [address] IMAGING REPORT Signed PATIENT: GREGORY STILES MR#: [id number] : 1940 SEX: M AGE: 85 LOCATION: [facility] ORDER 1150 STATUS: ADM IN REPORT#: [id number] SERVICE 1147 REASON: recent fall last month, sepsis, weakness ORDERING PHYSICIAN: EMY CHARLES MD PROCEDURE: HEAD WO - CT HEAD/BRAIN W/O CONTRAST EXAM: CT Head Without IV contrast. CLINICAL HISTORY: recent fall last month, sepsis, weakness TECHNIQUE: Axial computed tomography images of the head/brain without intravenous contrast. COMPARISON: None provided. FINDINGS: BRAIN: No evidence of acute hemorrhage. No mass lesion. No CT evidence for acute territorial infarct. No midline shift or extra-axial collections. Generalized cerebral atrophy with chronic white matter ischemic changes VENTRICLES: No hydrocephalus. ORBITS: The orbits are unremarkable. SINUSES AND MASTOIDS: The paranasal sinuses and mastoid air cells are clear. BONES: No fracture. SOFT TISSUES: Unremarkable. IMPRESSION: 1. No acute intracranial findings. 2. Chronic ischemic and atrophic changes. /[place] DICTATED BY: ЮЛИЯ RASHEED MD DATE: 05/05/251338 ELECTRONICALLY SIGNED BY: ЮЛИЯ RASHEED MD DATE: 05/05/251338 PATIENT: GREGORY STILES MR#: [id number] : 1940 SEX: M AGE: 85 LOCATION: [facility] ORDER 1150 STATUS: ADM IN [facility] REPORT#: [id number] SERVICE 1147 REASON: sepsis, left groin pain, diarrhea, Hx of ESRD ORDERING PHYSICIAN: EMY CHARLES MD PROCEDURE: ABD PEL WO - CT ABDOMEN/PELVIS W/O CONTRAST EXAM: CT Abdomen and Pelvis Without IV contrast CLINICAL HISTORY: sepsis, left groin pain, diarrhea, Hx of ESRD TECHNIQUE: Axial computed tomography images of the abdomen and pelvis without intravenous contrast. CONTRAST: No IV contrast. COMPARISON: None provided. FINDINGS: LUNG BASES: The lung bases appear clear. No pleural effusions are seen. LIVER: The liver is enlarged in size measuring approximately 17 cm GALLBLADDER AND BILE DUCTS: No biliary ductal dilatation is evident. Post-cholecystectomy status. PANCREAS: Unremarkable. SPLEEN: Unremarkable. ADRENAL GLANDS: Unremarkable. KIDNEYS, URETERS, AND BLADDER: There is no hydronephrosis or hydroureter. No urinary calculi are seen. Both kidney is small in size. The right kidney measures approximately 6.5 x 3.5 mm The left kidney measures approximately 7.5 x 4 cm. Mild smooth circumferential thickening in the urinary bladder wall measuring approximately 4 mm suggests cystitis Subcentimeter-sized simple cortical cyst in both kidneys. STOMACH AND BOWEL: Unremarkable appearance of the stomach. No evidence of bowel obstruction. No evidence suggesting enteritis or colitis. Diverticula in the third part of the duodenum measuring approximately 3.5 x 2.5 cm. Diverticulae in the descending and sigmoid colon. APPENDIX: No evidence of acute appendicitis on CT examination. PERITONEUM: No free fluid. No free air. LYMPH NODES: No lymphadenopathy is evident. REPRODUCTIVE: The prostate gland is enlarged in size, measuring approximately 4.9 x 3.7 x 4.6 cm, volume of approximately 43.4 cc VASCULATURE: No evidence of abdominal aortic aneurysm. BONES: No aggressive appearing osseous lesion. No acute osseous pathology evident. Degenerative changes in the spine, more pronounced at L1-L2 Mild levoscoliosis IMPRESSION: 1. No acute intra-abdominal or pelvic pathology. 2. Bilateral small kidneys, suggestive of chronic renal disease. 3. Mild bladder wall thickening, possibly representing cystitis. 4. Duodenal diverticulum in the third part, measuring approximately 3.5 x 2.5 cm. /[place] DICTATED BY: STARLA HOOD Jr., MD DATE: 05/05/251418 ELECTRONICALLY SIGNED BY: STARLA HOOD Jr., MD DATE: 05/05/251418 PATIENT: GREGORY STILES MR#: [id number] : 1940 SEX: M AGE: 85 LOCATION: [facility] ORDER 47 STATUS: ADM IN HOSPITAL REPORT#: [id number] SERVICE 1142 REASON: assess for DVT, significant bilaterla lower extremity edema ORDERING PHYSICIAN: EMY CHARLES MD PROCEDURE: VENOUS [place] - US VENOUS DOPPLER BILATERAL EXAM: US for Deep Venous Thrombosis, bilateral Lower Extremity. CLINICAL HISTORY: Leg Pain and Swelling TECHNIQUE: Real-time ultrasound scan of the veins of the bilateral lower extremity with color Doppler flow, spectral waveform analysis and compression. COMPARISON: None provided. FINDINGS: DEEP VEINS: Echogenic content within the left popliteal vein with loss of compressibility, suggestive of thrombosis. The bilateral common femoral, superficial femoral, and the right popliteal veins are echolucent and compressible. The visualized calf veins appear patent. SOFT TISSUES: No popliteal fossa cyst or other abnormalities. IMPRESSION: 1. Left popliteal vein thrombosis. /[place] DICTATED BY: STARLA HOOD Jr., MD DATE: 05/05/25 151 ELECTRONICALLY SIGNED BY: STARLA HOOD Jr., MD DATE: 05/05/25 1510 PATIENT: GREGORY STILES MR#: [id number] : 1940 SEX: M AGE: 85 LOCATION: [facility] ORDER 8 STATUS: ADM IN REPORT#: [id number] SERVICE REASON: fever ORDERING PHYSICIAN: BRANDON MCKAY MD PROCEDURE: CXR1VW - CHEST 1VW EXAM: CR Chest, 1 View. CLINICAL HISTORY: fever COMPARISON: None provided. FINDINGS: Vascular stent overlies the left subclavian vessel. LUNGS: There is no mass, infiltrate, or acute pulmonary abnormality. PLEURAL SPACES: No evidence of pleural effusion or pneumothorax. MEDIASTINUM: Cardiac size and mediastinal contours within normal limits. BONES: No aggressive appearing osseous lesion seen. IMPRESSION: No acute cardiopulmonary pathology is evident. /[place] DICTATED BY: STARLA HOOD Jr., MD DATE: 05/05/25 1302 ELECTRONICALLY SIGNED BY: STARLA HOOD Jr., MD DATE: 05/05/25 130 LABORATORY: [ ] Hematology Labs: Test 05/05/25 10:06 Range/Units White Blood Count 18.8 H 4.8-10.8 K/uL Red Blood Count 2.83 L 4.50-6.20 MIL/uL Hemoglobin 10.1 L 14.0-18.0 g/dL Hematocrit 30.1 L 42-54 % Mean Corpuscular Volume 106.4 H 79-99 fL Mean Corpuscular Hemoglobin 35.7 H 27.0-33.0 pg Mean Corpuscular Hemoglobin Concent 33.6 32.0-36.0 g/dL Red Cell Distribution Width 14.3 11.0-15.5 % Platelet Count 112 L 130-400 K/uL Mean Platelet Volume 11.4 H 7.5-10.5 fL Immature Granulocyte % (Auto) 0.7 0-1 % Neutrophils (%) (Auto) 39.5 L 40.0-77.0 % Lymphocytes (%) (Auto) 47.1 21.0-51.0 % Monocytes (%) (Auto) 10.2 3.0-13.0 % Eosinophils (%) (Auto) 1.2 0.0-8.0 % Basophils (%) (Auto) 1.3 0.0-5.0 % Neutrophils # (Auto) 7.4 1.8-7.7 K/uL Lymphocytes # (Auto) 8.8 H 1.0-4.8 K/uL Monocytes # (Auto) 1.9 H 0.1-1.0 K/uL Eosinophils # (Auto) 0.22 0.00-0.70 K/uL Basophils # (Auto) 0.24 H 0.00-0.20 K/uL Absolute Immature Granulocyte (auto 0.13 0-1 K/uL Segmented Neutrophils % 56 40-70 % Lymphocytes % (Manual) 36 22-44 % Monocytes % (Manual) 4 2-9 % Nucleated Red Blood Cells 0.0 0.0-0.19 % Differential Comment MANUAL DIFFERENTIAL Reactive Lymphocytes 4 H 0-0 % White Cell Morphology Comment See comments Platelet Morphology Comment SLIGHTLY DECREASED Red Blood Cell Morphology MACROCYTIC 1+ Erythrocyte Sedimentation Rate 26 H 0-20 MM/HR Chemistry Labs: Test 05/05/25 13:40 05/05/25 10:06 Range/Units Lactic Acid Level 2.1 0.8-2.5 mmol/L Sodium Level 129 L 136-145 mmol/L Potassium Level 3.4 L 3.5-5.1 mmol/L Chloride Level 91 L 101-111 mmol/L Carbon Dioxide Level 27 21-32 mmol/L Blood Urea Nitrogen 63 H 7-18 mg/dL Creatinine 9.9 *H 0.5-1.3 mg/dL Glomerular Filtration Rate Calc 5 >90 mL/min Random Glucose 79 70-105 mg/dL Total Calcium 8.4 L 8.5-10.1 mg/dL Total Bilirubin 1.9 H 0.2-1.0 mg/dL Direct Bilirubin 1.1 H 0.0-0.3 mg/dL Aspartate Amino Transf (AST/SGOT) 114 H 10-37 U/L Alanine Aminotransferase (ALT/SGPT) 65 12-78 U/L Alkaline Phosphatase 152 H 50-136 U/L Lactate Dehydrogenase 971 H 81-234 U/L Total Creatine Kinase 63 21-232 U/L Troponin I High Sensitivity 39 4-75 ng/L C-Reactive Protein, Quantitative 108.00 H 0.5-3.0 mg/L Total Protein 7.6 6.0-8.3 g/dL Albumin 2.7 L 3.5-5.0 g/dL Vitamin B12 Level 1759 H 193-986 pg/mL Folic Acid (LAB) 7.50 2-20 ng/mL Procalcitonin 4.00 H 0.05-0.5 ng/mL Coagulation Labs: Test 05/05/25 14:09 05/05/25 10:06 Range/Units Activated Partial Thromboplast Time 41.5 H 26.3-35.5 SEC Prothrombin Time 13.5 H 9.6-11.6 SEC Prothromb Time International Ratio 1.31 H 0.85-1.15 ASSESSMENT: Fluid overload End-stage renal disease Sepsis, POA Thrombocytopenia, mild, POA Anemia of renal failure, POA Macrocytosis, POA Hyponatremia, POA Hypokalemia, POA Sacral decubitus ulcer, POA Significant leukocytosis, POA Significant debility/frailty/deconditioning, POA Bilateral lower extremity edema, rule out DVT, POA Recent history of right knee patellar fracture, POA Rule out active urinary tract infection, POA Acute diarrhea, POA Hypertension, POA Hyperlipidemia, POA PLAN: Labs and Diagnostics/ Radiology personally reviewed and interpreted by myself and supervising physician We have reviewed dialysis and external records in detail Dialysis will be done today then continue dialysis schedule Monday Follow cultures Continue with the antibiotics 1.5 L fluid restriction Continue to monitor H&H Epogen on dialysis days, as needed Continue with frequent monitoring of renal function, anemia, and electrolytes Order CBC, BMP, and electrolytes in the morning May use Dilaudid 0.5 mg IV every 6 hours as needed for severe pain Monitor blood pressure adjust medication doses as needed Maintain normotensive state Strict intake, output, and daily weight should be monitored Please renally adjust medications. Avoid nephrotoxics and nonsteroidal drugs. We will continue to monitor the patient closely We have discussed with the other team physicians in detail about the care plan Thank you for allowing us to participate in the care of this patient ATTESTATION BY PHYSICIAN I have seen and examined the patient. I reviewed the documentation, medical decision making, and treatment plan as noted by the mid-level provider above. I agree with the findings and plan of care. ZANE MCGEE MD, [facility] May 05, 2025 14:50
--- NOTE | 2025-05-05 15:00 | NUR ---
WOUND CARE NURSE AT BEDSIDE FOR EVALUATION
[2025-05-05 15:06] LABS: APPEARANCE,URINE CLOUDY (CLEAR); GLUCOSE, URINE (UA) NEGATIVE (NEGATIVE); LEUKOCYTE ESTERASE ,URINE 500 Leu/uL (NEGATIVE); NITRATE,URINE NEGATIVE (NEGATIVE); OCCULT BLOOD,URINE MODERATE (NEGATIVE)
[2025-05-05 15:09] LABS: ADD UA MICROSCOPIC YES
[2025-05-05 15:14] LABS: SQUAMOUS EPITHELIAL CELL,UR RARE /HPF (0-2); WBC CLUMP FEW /HPF (0-1)
--- NOTE | 2025-05-05 15:15 | NUR ---
EPISODE OF DIARRHEA.
--- NOTE | 2025-05-05 15:16 | HMCSR ---
APPROVED REPORT EXAM: Two-dimensional and M-mode echocardiogram with Doppler and color Doppler. INDICATION ICD: R01.1 Cardiac murmur, unspecified, sepsis 2D Dimensions RVDd4.0 cmLVEF(%)65.4 (>50%)LVED Vol(simp.)80.0 mL IVSd0.8 (0.7-1.1cm)FS(%)36 %LVES Vol(simp.)34.0 mL LVDd4.7 (3.8-5.6cm)LA (2D)4.8 (1.6-4.0cm)LVEF(%, simp.)58 % PWd0.8 (0.7-1.1cm)Ao Root(2D)3.0 (2.0-3.7cm)LA ESV INDEX (BP)37.16 mL/m2 IVSs0.9 cmLVOT diam2.0 (1.8-2.4cm) LVDs3.0 (2.5-4.0cm)IVC diam1.8 cm PWs1.3 cm Deformation Strain Apical 4-19.2 % Apical 2-17.3 % Apical 3-17.7 % Global Strain-18.1 % M-Mode Dimensions EPSS0.7 cm LA (MM)4.7 (1.6-4.0cm) Ao Root(MM)2.5 (2.0-3.7cm) Aortic Valve AoV Vmax1.6 m/Lis Peak GR10.5 mmHgLVOT Vmax1.4 m/s AoV VTI0.3 mAo Mean GR5.9 mmHgLVOT VTI0.33 m ARMANDO (VMAX)2.88 cm2AVA (VTI) 3.5 cm2 Mitral Valve MV E Pvja884.8 cm/sDECEL Blbp076 ms MV A Chqm240.7 cm/sP 1/2 T67 ms E/A ratio0.8MVA (PHT)3.3 cm2 TDI E/E' Cbyixd49.0E/E' Ldtpohy27.2 Medial E' Peak V5.09 cm/sLateral E' Peak V7.71 cm/s Pulmonary Valve PV Vmax1.1 m/sPV VTI0.23 mPV Mean GR2.7 mmHg PV Peak GR4.5 mmHg Tricuspid Valve TR Vmax2.6 m/sRAP (EST) 3 bqKcECPN52.0 mmHg TR Peak GR29.0 mmHg Left Ventricle The left ventricle is normal size. GLS -18.0% There is normal LV segmental wall motion. There is norm al left ventricular wall thickness. The LVEF is > 55%. Stage I diastolic dysfunction. Right Ventricle The right ventricle is normal size. The right ventricular systolic function is normal. Atria The left atrium is mildly dilated. The right atrium is mildly dilated. Aortic Valve The aortic valve is normal in structure. No aortic regurgitation is present. There is no aortic valvu lar stenosis. Mitral Valve The mitral valve is normal in structure. There is no mitral valve regurgitation noted. There is no mi tral valve stenosis. Tricuspid Valve The tricuspid valve is normal in structure. There is trace of tricuspid valve regurgitation noted. Pulmonic Valve The pulmonary valve is normal in structure. There is no pulmonic valvular regurgitation. Great Vessels The aortic root is normal in size. The IVC is normal in size and collapses >50% with inspiration. Pericardium There is no pericardial effusion. Other Information Quality : Adequate Conclusion The LVEF is > 55%. Stage I diastolic dysfunction. GLS -18.0% There is normal LV segmental wall motion. The left atrium is mildly dilated. There is no pericardial effusion.
--- NOTE | 2025-05-05 15:28 | NUR ---
[facility] Consult: Patient assessed by wound healing team. See wound assessment. Assessment and recommendations provided to primary nurse. Education provided. Addendum: 05/06/25 at 1511 by ROHAN HOPKINS RN RN/ Amended: Links added.
[2025-05-05] MEDS: 0.9%NACL 1000ML 1,000 ML IV SCH (15:30)
--- NOTE | 2025-05-05 16:00 | HMCIMG ---
EXAM: CR right Knee, 2 View. CLINICAL HISTORY: hx of right knee patellar fracture COMPARISON: None provided. FINDINGS: Mildly displaced intra-articular fracture at the superior pole of the patella. Joint spaces remain anatomically aligned. Knee joint effusion. Atherosclerotic vascular calcifications are noted. IMPRESSION: 1. Mildly displaced intra-articular fracture at the superior pole of the patella with associated knee joint effusion. /[place]
--- NOTE | 2025-05-05 16:10 | ERN ---
ED Note History of Present Illness Stated Complaint: SEPSIS,LEUKOCYTOSIS,ESRD,MISSED HD Chief Complaint: Weakness Time Seen by MD: 09:46 Dictation: 85-year-old male presenting to the emergency department with generalized weakness some from home end-stage renal disease has not dialyzed for over a week subjective fevers. EMS reported low blood pressure Allergies: Coded Allergies: No Known Drug Allergies (Unverified Allergy, Unknown, 05/05/25) Home Meds Reported Medications Vit B Cmplx 3/FA/Vit C/Biotin (Kylie-Talya Rx Tablet) 1 Each Tablet, 1 EACH PO DAILY, TAB 03/24/16 Indomethacin (Indomethacin) 25 Mg Capsule, 25 MG PO DAILY PRN for PAIN LEVEL 1 TO 5, CAP 03/23/16 Acetaminophen (Tylenol) 500 Mg Tab, 500 MG PO DAILY PRN for PAIN LEVEL 1 TO 5, TAB 03/23/16 Loperamide HCl (Imodium) 2 Mg Cap, 2 MG PO DAILY PRN for DIARRHEA, CAP 03/23/16 Furosemide (Furosemide) 40 Mg Tablet, 40 MG PO DAILY, TAB 03/23/16 Potassium Chloride (Potassium Chloride) 10 Meq Capsule.er, 10 MEQ PO DAILY, CAP 03/23/16 Amlodipine Besylate (Amlodipine Besylate) 10 Mg Tablet, 10 MG PO DAILY, TAB 03/23/16 Losartan Potassium (Losartan Potassium) 100 Mg Tablet, 100 MG PO DAILY, TAB 03/23/16 Pravastatin Sodium (Pravastatin Sodium) 40 Mg Tablet, 40 MG PO HS, TAB 03/23/16 Past Medical History Past Medical History: Hypertension, Renal Failure Surgical History: LAVA Review of System Dictation Constitutional: Per HPI Eyes: Negative for injury, pain,redness, and discharge ENT: Negative for injury,pain or swelling Cardiovascular: Negative for chest pain, palpitations, positive for Respiratory: Negative for shortness of breath, cough, and wheezing, Abdomen/GI: Negative for abdominal pain, nausea, vomiting, diarrhea, and constipation Back: Negative for injury and pain : Negative for injury, bleeding and discharge MS/Extremity: Negative for injury and deformity Skin: Negative for rash, and discoloration Neuro: Per HPI Initial Vital Sign VS Vital Signs Date Time Temp Pulse Resp B/P (MAP) Pulse Ox O2 Delivery O2 Flow Rate FiO2 05/05/25 09:35 101.5 81 20 154/63 99 Room Air 05/05/25 10:42 0 21 Physical Exam Dictation General: awake, alert, appears lethargic and weak Head/Face: Normocephalic, atraumatic Eyes: PERRL, EOMI, vision at baseline ENT: oral cavity clear, TMs clear, no signs of infection Neck: Trachea midline, supple, no nuchal rigidity Cardiovascular: RRR, normal S1/S2, No MRGs, JVD and edema noted Respiratory: CTAB, no respiratory distress, No rales or wheezes Abdomen: Soft, non-tender, non-distended, normal bowel sounds, no guarding or rebound. Skin: Warm, dry, normal turgor, no rash MS/Extremity: Pulses equal, no cyanosis, neurovascular intact, FROM Neuro: COAx4, GCS 15, strength 5/5, CN 2-12 intact, Psych: Normal behavior, mood, and affect normal Results (Laboratory/Radiology) Laboratory/Radiology Laboratory Tests Test 05/05/25 10:06 05/05/25 10:40 05/05/25 13:40 05/05/25 14:09 White Blood Count 18.8 K/uL (4.8-10.8) H Red Blood Count 2.83 MIL/uL (4.50-6.20) L Hemoglobin 10.1 g/dL (14.0-18.0) L Hematocrit 30.1 % (42-54) L Mean Corpuscular Volume 106.4 fL (79-99) H Mean Corpuscular Hemoglobin 35.7 pg (27.0-33.0) H Mean Corpuscular Hemoglobin Concent 33.6 g/dL (32.0-36.0) Red Cell Distribution Width 14.3 % (11.0-15.5) Platelet Count 112 K/uL (130-400) L Mean Platelet Volume 11.4 fL (7.5-10.5) H Immature Granulocyte % (Auto) 0.7 % (0-1) Neutrophils (%) (Auto) 39.5 % (40.0-77.0) L Lymphocytes (%) (Auto) 47.1 % (21.0-51.0) Monocytes (%) (Auto) 10.2 % (3.0-13.0) Eosinophils (%) (Auto) 1.2 % (0.0-8.0) Basophils (%) (Auto) 1.3 % (0.0-5.0) Neutrophils # (Auto) 7.4 K/uL (1.8-7.7) Lymphocytes # (Auto) 8.8 K/uL (1.0-4.8) H Monocytes # (Auto) 1.9 K/uL (0.1-1.0) H Eosinophils # (Auto) 0.22 K/uL (0.00-0.70) Basophils # (Auto) 0.24 K/uL (0.00-0.20) H Absolute Immature Granulocyte (auto 0.13 K/uL (0-1) Segmented Neutrophils % 56 % (40-70) Lymphocytes % (Manual) 36 % (22-44) Monocytes % (Manual) 4 % (2-9) Nucleated Red Blood Cells 0.0 % (0.0-0.19) Differential Comment MANUAL DIFFERENTIAL Reactive Lymphocytes 4 % (0-0) H White Cell Morphology Comment See comments Platelet Morphology Comment SLIGHTLY DECREASED Red Blood Cell Morphology MACROCYTIC 1+ Erythrocyte Sedimentation Rate 26 MM/HR (0-20) H Prothrombin Time 13.5 SEC (9.6-11.6) H Prothromb Time International Ratio 1.31 (0.85-1.15) H Activated Partial Thromboplast Time 39.7 SEC (26.3-35.5) H 41.5 SEC (26.3-35.5) H Sodium Level 129 mmol/L (136-145) L Potassium Level 3.4 mmol/L (3.5-5.1) L Chloride Level 91 mmol/L (101-111) L Carbon Dioxide Level 27 mmol/L (21-32) Blood Urea Nitrogen 63 mg/dL (7-18) H Creatinine 9.9 mg/dL (0.5-1.3) *H Glomerular Filtration Rate Calc 5 mL/min (>90) Random Glucose 79 mg/dL (70-105) Lactic Acid Level 2.3 mmol/L (0.8-2.5) 2.1 mmol/L (0.8-2.5) Total Calcium 8.4 mg/dL (8.5-10.1) L Total Bilirubin 1.9 mg/dL (0.2-1.0) H Direct Bilirubin 1.1 mg/dL (0.0-0.3) H Aspartate Amino Transf (AST/SGOT) 114 U/L (10-37) H Alanine Aminotransferase (ALT/SGPT) 65 U/L (12-78) Alkaline Phosphatase 152 U/L (50-136) H Lactate Dehydrogenase 971 U/L (81-234) H Total Creatine Kinase 63 U/L (21-232) Troponin I High Sensitivity 39 ng/L (4-75) C-Reactive Protein, Quantitative 108.00 mg/L (0.5-3.0) H Total Protein 7.6 g/dL (6.0-8.3) Albumin 2.7 g/dL (3.5-5.0) L Vitamin B12 Level 1759 pg/mL (193-986) H Folic Acid (LAB) 7.50 ng/mL (2-20) Procalcitonin 4.00 ng/mL (0.05-0.5) H SARS-CoV-2 Antigen (Rapid) PRESUMPTIVE NEGATIVE Test 05/05/25 14:48 Urine Color YELLOW (YELLOW) Urine Appearance CLOUDY (CLEAR) H Urine pH 8.0 (5.0-8.0) Urine Specific [place] 1.026 (1.001-1.031) Urine Protein 100 mg/dL (NEGATIVE) H Urine Glucose (UA) NEGATIVE mg/dL (NEGATIVE) Urine Ketones NEGATIVE mg/dL (NEGATIVE) Urine Occult Blood MODERATE (NEGATIVE) H Urine Nitrate NEGATIVE (NEGATIVE) Urine Bilirubin NEGATIVE mg/dL (NEGATIVE) Urine Urobilinogen 2.0 mg/dL (0.2-1.0) H Urine Leukocyte Esterase 500 Oc/uL (NEGATIVE) H Urine RBC 6-10 /HPF (0-1) H Urine WBC TNTC /HPF (0-1) H Urine WBC Clumps (Auto) FEW /HPF (0-1) Urine Squamous Epithelial Cells RARE /HPF (0-2) Urine Bacteria FEW /HPF (None Seen) Labs Reviewed?: Yes EKG Comment: Heart rate 71 normal sinus rhythm no STEMI no STEMI equivalent ED Course ED Course Orders Procedure Category Date Status Time 12 Lead Ekg Tracing- EKG 05/05/25 Resulted Technical 09:47 Basic Metabolic Panel LAB 05/05/25 Complete 09:47 Blood Cult LILY 05/05/25 In Process 09:47 Cbc With Differential LAB 05/05/25 Complete 09:47 Creatine Kinase, Total LAB 05/05/25 Complete 09:47 Hepatic Function Panel LAB 05/05/25 Complete 09:47 Lactic Acid LAB 05/05/25 Complete 09:47 Covid19 (Sars Antigen LAB 05/05/25 Complete Rapid) 09:47 Troponin I High LAB 05/05/25 Complete Sensitivity 09:47 Urinalysis Profile LAB 05/05/25 Complete 09:47 Chest 1vw RAD 05/05/25 Resulted 09:47 Zosyn 3.375gm+Ns 50ml PHA 05/05/25 Complete (Zosyn 3.375gm+Ns 09:47 Acetaminophen 500mg PHA 05/05/25 Complete Tab (Tylenol 500mg T 10:00 0.9% Nacl 250ml (Ns PHA 05/05/25 Complete 250ml) 10:00 Manual Differential LAB 05/05/25 Complete 10:06 Erythrocyte Sed Rate LAB 05/05/25 Complete 11:16 Crp Quantitative LAB 05/05/25 Complete 11:16 Procalcitonin LAB 05/05/25 Complete 11:16 Lactate Dehydrogenase LAB 05/05/25 Complete 11:16 Influenza Type A & B, LAB 05/05/25 Logged Rapid 11:16 Admit Orders ADM 05/05/25 Transmitted 11:37 C Difficile A/B LAB 05/05/25 Logged 11:37 Stool Panel Gi By Pcr LAB 05/05/25 Logged 11:37 Stool Culture LILY 05/05/25 Logged 11:37 Wound Mgt Consult [facility] 05/05/25 Transmitted Eval & Treat 11:37 Vancomycin Protocol [facility] 05/05/25 In Process (Vancomycin Protocol 12:00 Nephrology Consult [facility] 05/05/25 Transmitted 11:39 Infectious Disease [facility] 05/05/25 Transmitted Consult 11:39 Pt And Ptt LAB 05/05/25 Complete 11:40 Type And Screen BBK 05/05/25 Complete 11:40 Vitamin B12 Serum LAB 05/05/25 Complete 11:40 Folic Acid Serum LAB 05/05/25 Complete 11:40 *Nursing CPOE 05/05/25 Transmitted Communication: 11:42 Folic Acid/Vitamin B [facility] 05/06/25 In Process Comp W-C (Nephrovit 09:00 Hematology Consult [facility] 05/05/25 Transmitted 11:42 Fall Precautions CPOE 05/05/25 Transmitted 11:42 Aspiration Precautions CPOE 05/05/25 Transmitted 11:42 Elevate Hob At 30 CPOE 05/05/25 Transmitted Degrees 11:42 Us Venous Doppler US 05/05/25 Resulted Bilateral 11:42 Knee 3vws Rt RAD 05/05/25 Taken 11:42 Turn Patient Q2hrs CPOE 05/05/25 Transmitted 11:47 Air Bed CPOE 05/05/25 Transmitted 11:47 Acetaminophen 325 Tab PHA 05/05/25 In Process (Tylenol 325mg Tab 12:00 Ondansetron 4mg Inj PHA 05/05/25 In Process (Zofran 4mg Inj) 12:00 Ct Head/Brain W/O CT 05/05/25 Resulted Contrast 11:47 Ct Abdomen/Pelvis W/O CT 05/05/25 Resulted Contrast 11:47 Zosyn 3.375gm+Ns 50ml PHA 05/05/25 In Process (Zosyn 3.375gm+Ns 22:00 Pharmacy To Renal PHA 05/05/25 Complete Dose (Renal Dose) 12:00 *Nursing CPOE 05/05/25 Transmitted Communication: 11:50 Famotidine 20mg Tab PHA 05/05/25 Complete (Pepcid 20mg Tab) 21:00 Vital Signs(Adult CPOE 05/05/25 Transmitted Hospitalist) 11:53 Daily Weights CPOE 05/05/25 Transmitted 11:53 I&O Q Shift CPOE 05/05/25 Transmitted 11:53 Condition: CPOE 05/05/25 Transmitted 11:53 Telemetry Monitoring CPOE 05/05/25 Transmitted 11:53 Activity: Br W/Brp CPOE 05/05/25 Transmitted With Assist 11:53 Renal Dialysis Diet DIET 05/05/25 Transmitted Lunch Heparin 5,000 Unit PHA 05/05/25 Complete Vial (Heparin 5,000 U 21:00 Culture Urine LILY 05/05/25 In Process 11:56 Echo 2-D Complete ECHO 05/05/25 Resulted 11:57 Cbc With Differential LAB 05/06/25 Verified 04:00 Comprehensive LAB 05/06/25 Verified Metabolic Panel 04:00 Magnesium LAB 05/06/25 Verified 04:00 Vancomycin 1.25 PHA 05/05/25 Complete Gm/250 Ml Bag 13:00 Ferritin LAB 05/06/25 Verified 04:00 Iron Panel With %Sat LAB 05/06/25 Verified 04:[address] 05/05/25 Transmitted Order 12:20 Hydralazine 20mg Inj PHA 05/05/25 In Process (Apresoline 20mg In 13:00 Lactic Acid (Removed) LAB 05/05/25 Complete 13:22 Vancomycin Trough LAB 05/08/25 Verified 05:00 Vancomycin 500mg+Ns PHA 05/06/25 In Process 100ml (Vancomycin 50 16:00 Pantoprazole 40mg Inj PHA 05/05/25 In Process (Protonix 40mg Inj 14:00 Lisinopril 20mg PHA 05/06/25 In Process (Prinivil 20mg) 09:00 Initiate Heparin SARITA 05/05/25 In Process Treatment Pro 13:57 Partial LAB 05/05/25 Complete Thromboplastin Time 13:57 Heparin 5,000 Unit PHA 05/05/25 In Process Vial (Heparin 5,000 U 15:00 Heparin 25,000 PHA 05/05/25 In Process Units/250ml D5w 15:00 Heparin Protocol CPOE 05/05/25 Transmitted Monitoring 13:57 Consult [facility] [place] 05/05/25 Transmitted Dialysis 13:57 In-Patient Dialysis DIAL 05/05/25 Transmitted Treatment 13:57 I&O Every Shift CPOE 05/05/25 Transmitted 13:57 Daily Weights CPOE 05/05/25 Transmitted 13:57 Daily Fluid Intake CPOE 05/05/25 Transmitted Restriction 13:57 Metoprolol Succinate PHA 05/06/25 In Process (Toprol Xl) 09:00 Atorvastatin 40mg PHA 05/05/25 In Process (Lipitor 40mg) 21:00 [place] & Protein LAB 05/06/25 Verified Electropho Serum 04:00 Free [place]-Lambda LAB 05/06/25 Verified Light Chain 04:00 Psa Ultrasensitive LAB 05/06/25 Verified 04:00 Heparin 5,000 Unit PHA 05/05/25 Complete Vial (Heparin 5,000 U 15:00 Phosphorus LAB 05/06/25 Verified 04:00 Case Management CM 05/05/25 Transmitted Evaluation 15:18 Hepatitis B Core Total LAB 05/05/25 Logged 15:30 Hepatitis B Surface LAB 05/05/25 Logged Antibody 15:30 Obtain Consent For CPOE 05/05/25 Transmitted Hemodialysi 15:30 Hepatitis B Surface LAB 05/05/25 Logged Antigen 15:30 Dialysis Prescription DIAL 05/05/25 Transmitted 15:30 0.9%Nacl 1000ml (Ns PHA 05/05/25 In Process 1000ml) 15:30 Hemodialysis Nurings DIAL 05/05/25 Transmitted Orders 15:30 In-Patient Dialysis DIAL 05/06/25 Verified Treatment 06:00 Current Medications Medications (Trade) Dose Ordered Sig/Preeti Route PRN Reason Start Time Stop Time Status Last Admin Dose Admin Acetaminophen (TYLenol 500MG TAB) 1,000 mg ONCE ONCE PO 05/05/25 10:00 05/05/25 10:51 DC 05/05/25 11:09 Piperacillin Sod/ Tazobactam Sod (Zosyn 3.375gm+NS 50ml) 3.375 gm ONCE STAT IV 05/05/25 09:47 05/05/25 10:52 DC 05/05/25 11:08 Sodium Chloride 250 ml @ 0 mls/hr ONCE ONCE IV 05/05/25 10:00 05/05/25 10:51 DC 05/05/25 11:10 Vital Signs Date Time Temp Pulse Resp B/P (MAP) Pulse Ox O2 Delivery O2 Flow Rate FiO2 05/05/25 10:42 97.9 78 18 141/62 96 Room Air* 0 21 05/05/25 09:35 101.5 81 20 154/63 99 Room Air Medical Decision Making MDM 85-year-old male with generalized weakness end-stage renal disease missed dialysis concern for sepsis generalized weakness hemodynamically stable after IV fluids given antibiotics admitting for further care and evaluation. Critical Care Note Comment(s) Total critical care time was 33 minutes. Excluding time for procedures. Management of critically ill patient with concern for acute decompensation. Management included interpretation of laboratory values and imaging, hemodynamics, time for consultation with consultants and admitting physician. DX & DISP Disposition: Inpatient Departure Impression: Primary Impression: Sepsis Additional Impression: ESRD needing dialysis Condition: Stable Referrals: DEVI ELI (PCP) BRANDON MCKAY MD May 05, 2025 16:10
[2025-05-05] MEDS ORDERED: PANT20TA18 PO (16:24)
[2025-05-05] MEDS ORDERED: ROSU10TA72 PO (16:24)
[2025-05-05] MEDS ORDERED: CINA60TA4 PO (16:24)
[2025-05-05] MEDS ORDERED: AMLO-257 PO (16:24)
[2025-05-05] MEDS ORDERED: LISI20TA24 PO (16:24)
[2025-05-05] MEDS ORDERED: METO-391 PO (16:24)
[2025-05-05 16:37] LABS: INFLUENZA TYPE A Negative For Type A (NEGATIVE); INFLUENZA TYPE B Negative For Type B (NEGATIVE)
--- NOTE | 2025-05-05 19:00 | NUR ---
BEDSIDE SWALLOW EVAL COMPLETED. No s/s of aspiration. Recommend minced and moist solids, thin liquids and pills whole 1 per swallow or crushed with pureed solids. COMPENSATORY STRATEGIES: 1. sit upright during oral intake 2. small bites/sips 3. slow oral intake TURRET PUNCH OPERATOR reviewed results and recommendations with patient, son and nurse Ben. TURRET PUNCH OPERATOR educated patient on risks and consequences of aspiration. Speech therapy not warranted at this time. All questions answered. Addendum: 05/05/[address] NANCIE FREITAS Amended: Links added.
[2025-05-05] MEDS ORDERED: FAMOTIDINE 20MG TAB PO SCH (21:00)
[2025-05-05] MEDS: BALSAM PERU/CASTOR OIL 60 GM TUBE TP SCH (21:40)
[2025-05-05] MEDS: ZOSYN 3.375GM +NS 50ML IVPB SCH (22:12)
[2025-05-05 23:21] LABS: INR 1.33 (0.85-1.15)
[2025-05-06] VITALS (17 sets, daily range): BP systolic 54–174; BP diastolic 32–82; PULSE 45–126; RESP 8–155; TEMP 98; O2SAT 97–100
[2025-05-06 06:21] LABS: IMMATURE GRANULOCYTE ABSOLUTE 0.22 K/uL (0-1); NUCLEATED RED BLOOD CELLS 0.1 % (0.0-0.19); PLATELET COUNT (AUTO) 103 K/uL (130-400); RED BLOOD CELL COUNT(AUTO) 2.47 MIL/uL (4.50-6.20); RED CELL DISTRIBUTION WIDTH 14.5 % (11.0-15.5); WHITE BLOOD COUNT (AUTO) 22.7 K/uL (4.8-10.8)
[2025-05-06 08:14] LABS: % IRON SATURATION 93.2 % (30-44); IRON, SERUM 97.0 mcg/dL (65-175)
[2025-05-06 08:17] LABS: INR 1.46 (0.85-1.15)
--- NOTE | 2025-05-06 08:33 | PN ---
NEPHROLOGY NOTE SUBJECTIVE: Nephrology note for hemodialysis, tolerating dialysis. The patient is generally weak. No other associated findings. No other aggravating or relieving factors. No other associated symptoms. OBJECTIVE: CHEST: Shows crackles. EXTREMITIES: With no edema. NEUROLOGIC: Unchanged. PLAN: Plan is to continue dialysis support. Continue monitoring of renal function. Continue monitoring of electrolytes and antibiotic continue. PermCath removal will be needed. We will continue followup. The patient was evaluated and seen for dialysis and seen several times. I will monitor closely. Thank you for this patient. TID: [id number] RECEIPT: [id number]
[2025-05-06 08:37] LABS: ASPARTATE AMINOTRANSFERASE 106.0 U/L (10-37); CREATININE 7.4 mg/dL (0.5-1.3); GLOMERULAR FILTR. RATE CALC 7.0 mL/min (>90); GLUCOSE,RANDOM 69.0 mg/dL (70-105); PHOSPHORUS 3.8 mg/dL (2.5-4.9); SODIUM SERUM 131.0 mmol/L (136-145); TOTAL PROTEIN, SERUM 6.6 g/dL (6.0-8.3); UREA NITROGEN, BLOOD 49.0 mg/dL (7-18)
[2025-05-06] MEDS: LISINOPRIL 20 MG TABLET PO SCH (09:00)
--- NOTE | 2025-05-06 09:13 | NUR ---
[place] Care Coordination/Service Connection Patient is a new admission, pending Initial Assessment for discharge planning. Patient is service connected for SNF if needed.
[2025-05-06] MEDS: CINACALCET 30 MG TAB PO SCH (11:17)
[2025-05-06] MEDS: Vitamin B Complex/Vit C/Folic Acid PO SCH (11:17)
[2025-05-06] MEDS: amLODIPine 5 MG TAB PO SCH (11:18)
--- NOTE | 2025-05-06 12:06 | NUR ---
DCP: PENDING Sw met with pt and son Gary Stark [phone] at bedside. Pt appears very frail, short of breath, with venti mask. Son reports big decline in pt since Apr 28. Son states he has taken pt twice to [facility] ER, each time pt was discharged home from ER, nothing found for cause of pt's decline. Son states he brought pt here in hopes of getting answers. Son is pt's MPOA, primary caregiver. P's CH[facility] is provider [facility]. Son reports pt now is total care, can't walk related to pt's broken right knee. Pt has walker and cane, is pending auth for w/c. Son and CHICA have pt at their mobile home with them, mobile has ramp. Pt goes to [facility], last treatment was last night for 2 hrs. Discussed dcp. Son states he can not care for pt at current level of care, but pt would no wan to go to [place]. Son hopeful hat pt will improve during admission and be able to return to baseline prior to Apr 28. Discussed code status and ADV directives. Pt's wishes are to be full code and intubation, per son. CM to follow and assist as needed Addendum: 05/06/25 at 1220 by MISTY WATKINS Amended: Links added.
--- NOTE | 2025-05-06 12:29 | PN ---
FOLLOWUP PROGRESS NOTE SUBJECTIVE: An 85-year-old male with history of diabetes mellitus, hypertension. He has a history of known cardiomyopathy. He has a history of end-stage renal disease on dialysis 3 times per week. The patient presents to the hospital with complaints of underlying sepsis. The patient started on broad spectrum IV antibiotics. He did receive dialysis yesterday without difficulty and the patient is being seen as a followup visit for all of the above. REVIEW OF SYSTEMS: GENERAL: He is feeling weak and tired. HEENT: No change in vision. No change in hearing. CARDIOVASCULAR: There are no current chest pains or palpitations. PULMONARY: He denies any shortness of breath. GASTROINTESTINAL: He is tolerating a diet. MUSCULOSKELETAL: Complains of weakness. PHYSICAL EXAMINATION: VITAL SIGNS: Blood pressure is 110/50, pulse 90s. GENERAL: Afebrile, chronically ill male, elderly, lying in bed on the medical floor. HEENT: Atraumatic. Pupils are equal, round, and reactive to light. Oropharynx is without exudate. Nares clear. NECK: There is no JVP. There is no thyromegaly, no mass. CARDIOVASCULAR: Regular. There is no S3 or S4 gallop. LUNGS: Coarse with equal thoracic movement. ABDOMEN: Soft, nondistended and nontender. EXTREMITIES: No clubbing, no cyanosis. NEUROLOGICAL: He is awake. He is alert. LABORATORY DATA: Sodium 131, potassium 3.6, BUN 49, and creatinine 7. Iron levels are noted, hemoglobin 9.1, hematocrit 26. White blood cell count is 22,000. IMPRESSION: * Sepsis. * Diabetes mellitus. * Hypertension. * ESRD. PLAN: The patient continues with the antibiotics as prescribed. Urine culture is noted. Blood cultures are pending. The patient does continue with dialysis in the hospital and will continue to follow the patient closely. The patient with multiple questions, all of which were answered. All labs will be repeated in the morning. TID: [id number] RECEIPT: [id number]
--- NOTE | 2025-05-06 13:10 | PN ---
This is a 85-year-old male with underlying history of ESRD, hypertension, hyperlipidemia, anemia, who presented to the ER for further evaluation of generalized weakness, fevers since April 28, poor oral intake, and generalized debility ongoing for about a week. Patient's son was present at bedside who assisted with further history, son states that since patient's birthday about a week ago he has been having daily fevers, poor oral intake, congestion, diarrhea and increased debility. He states that last month, patient fell and had a suspected right patellar fracture which is being treated conservatively by orthopedist as outpatient. Has noticed that he has been having progressive lower extremity swelling and has been needing to use of walker to ambulate. Son reports that patient has been having 3-4 episodes of loose stool. Denies recent use of antibiotics. Patient was seen in [facility] ER several days ago where he was noted to be negative for flu and COVID and urinalysis he was told was also negative. Son reports that patient has been having left groin pain as well as possible urethral discharge as well. Patient has been maintained on Monday, , Monday dialysis session. His last session of dialysis was on Monday last week. Patient denies significant shortness of breath or productive cough. Son reports that legs have been significantly swollen as well. Patient is followed by Dr. Sharp as outpatient with Cardiology and has been upcoming appointment for a possible stress test. He is also being followed by [place] physician and is supposed to have a bone scan done as outpatient. Denies being previously diagnosed with malignancy. PHYSICAL EXAM GENERAL APPEARANCE: The patient is awake, alert, and oriented, in no acute cardiopulmonary distress. NEUROLOGICAL: Cranial nerves II-XII grossly intact. Motor is 5/5 in bilateral upper and lower extremities proximal to distal. No sensory deficits. HEENT: Face is symmetric. Pupils are equal and reactive. Extraocular movements are intact. NECK: Supple. No JVD. No thyromegaly. No submental, submandibular, pre- /postauricular, occipital or supraclavicular lymphadenopathy. CHEST: Normal chest expansion. No Telemetry. LUNGS: Absence of any rales, rhonchi or any wheezing. CARDIOVASCULAR: Regular. S1 and S2 normal. Murmur noted on 2nd right upper sternal longer ABDOMEN: Soft, nontender, and nondistended. There is no rebound, voluntary guarding, or rigidity. : Deferred. No Bernal. EXTREMITIES: Both lower extremities are edematous with 2+ pitting edema SKIN: Son reports having history of sacral ulcer as well Assessment 1. Anemia 2. Mild thrombocytopenia 3. Chronic renal failure with the patient on hemodialysis 4. Leukocytosis 5. Lower extremity edema bilaterally suspicious for possible DVT 6. Hypertension 7. Hyperlipidemia Plan 1. Peripheral blood smear showed red blood cells to be normocytic normochromic. There was no fragment cell or schistocyte. There is no teardrop cell. There is no pelger-Huet cell. White blood cell with no blasts. Manual platelet count is normal 2. There was hypersegmented neutrophils. This patient to be started on folic acid 1 mg p.o. daily and vitamin B12 1000 mcg p.o. daily. 3. There is rouleaux phenomena. We will ask for SPEP, and free light chain. If there is monoclonal protein we will do a bone marrow biopsy. 4. Doppler ultrasound was done. If the patient have DVTs. Patient was started on heparin drip. 5. Continue antibiotic treatment as per primary 6. It seems the patient was found to have some lesion to the bone. If we suspecting multiple myeloma bone scan does not help in this case. And the bone scan will come negative anyway even if there is lesion from multiple myeloma. So the best way is to do skeletal bone survey or PET scan 7. But if they doing the bone scan for different reason other than bone marrow then this could be indicated Vitals/Labs Vital Signs Date Time Temp Pulse Resp B/P (MAP) Pulse Ox O2 Delivery O2 Flow Rate FiO2 05/06/25 11:21 97.9 93 22 110/50 99 Venti Mask+ 8 99 Laboratory Tests 05/06/25 05:53 05/06/25 07:33 Microbiology Date/Time Source Procedure Growth Status 05/05/25 14:48 Urine,Clean Catch - Final Complete Medications Current Medications Piperacillin Sod/ Tazobactam Sod 3.375 gm ONCE STAT IV Last administered on 05/05/25at 11:08; Start 05/05/25 at 09:47; Stop 05/05/25 at 10:52; Status DC Acetaminophen 1,000 mg ONCE ONCE PO Last administered on 05/05/25at 11:09; Start 05/05/25 at 10:00; Stop 05/05/25 at 10:51; Status DC Sodium Chloride 250 ml @ 0 mls/hr ONCE ONCE IV Last administered on 05/05/25at 11:10; Start 05/05/25 at 10:00; Stop 05/05/25 at 10:51; Status DC Vancomycin HCl 1 each AD IV; Start 05/05/25 at 12:00; Stop 05/19/25 at 11:59 Vitamin B Complex/ Vit C/Folic Acid 1 cap DAILY PO Last administered on 05/06/25at 11:17; Start 05/06/25 at 09:00; Stop 06/05/25 at 08:59 Acetaminophen 650 mg Q6H PRN PO Last administered on 05/05/25at 19:39; Start 05/05/25 at 12:00; Stop 06/04/25 at 11:59 Ondansetron HCl 4 mg Q6H PRN IVP; Start 05/05/25 at 12:00; Stop 06/04/25 at 11:59 Piperacillin Sod/ Tazobactam Sod 3.375 gm Q12H IVPB Last administered on 05/06/25at 11:17; Start 05/05/25 at 22:00; Stop 05/15/25 at 21:59 Famotidine 20 mg Q48H PO; Start 05/05/25 at 21:00; Stop 05/05/25 at 13:50; Status DC Heparin Sodium (Porcine) 5,000 unit BID SQ; Start 05/05/25 at 21:00; Stop 05/05/25 at 13:50; Status DC Vancomycin HCl 250 ml @ 125 mls/hr ONCE ONCE IV Last administered on 05/05/25at 14:10; Start 05/05/25 at 13:00; Stop 05/05/25 at 14:59; Status DC Hydralazine HCl 5 mg Q6H PRN IV Last administered on 05/06/25at 05:57; Start 05/05/25 at 13:00; Stop 06/04/25 at 12:59 Vancomycin HCl 100 ml @ 100 mls/hr TTHSPHD IV; Start 05/06/25 at 16:00; Stop 05/16/25 at 15:59 Pantoprazole Sodium 40 mg Q24H IVP Last administered on 05/06/25at 11:17; Start 05/05/25 at 14:00; Stop 06/04/25 at 13:59 Lisinopril 20 mg DAILY PO; Start 05/06/25 at 09:00; Stop 06/05/25 at 08:59 Heparin Sodium (Porcine) *calculation based on ACTUAL B... AD PRN IV Last administered on 05/06/25at 11:31; Start 05/05/25 at 15:00; Stop 06/04/25 at 14:59 Heparin Sodium/ Dextrose 250 ml @ 0 mls/hr Q6H IV Last administered on 05/05/25at 16:40; Start 05/05/25 at 15:00; Stop 06/04/25 at 14:59 Metoprolol Succinate 50 mg DAILY PO; Start 05/06/25 at 09:00; Stop 06/05/25 at 08:59 Atorvastatin Calcium 40 mg HS PO Last administered on 05/05/25at 21:30; Start 05/05/25 at 21:00; Stop 06/04/25 at 20:59 Heparin Sodium (Porcine) 2,000 unit ONCE ONCE IV Last administered on 05/05/25at 16:39; Start 05/05/25 at 15:00; Stop 05/05/25 at 15:01; Status DC Sodium Chloride 1,000 ml @ 0 mls/hr ONCE IV Last administered on 05/05/25at 21:00; Start 05/05/25 at 15:30; Stop 06/04/25 at 15:29 Wound Care/ Dressing Products 1 APPL BID TP Last administered on 05/06/25at 11:19; Start 05/05/25 at 21:00; Stop 06/04/25 at 20:59 Nystatin apply to groin/buttocks BID TP Last administered on 05/06/25at 11:20; Start 05/05/25 at 21:00; Stop 06/04/25 at 20:59 Amlodipine Besylate 5 mg DAILY PO Last administered on 05/06/25at 11:18; Start 05/06/25 at 09:00; Stop 06/05/25 at 08:59 Cinacalcet 30 mg DAILYBKFST PO Last administered on 05/06/25at 11:17; Start 05/06/25 at 08:00; Stop 06/05/25 at 07:59 AZAEL MOORE MD May 06, 2025 13:10
--- NOTE | 2025-05-06 13:40 | PN ---
[facility] PROGRESS NOTE Date of Service: May 06, 2025 Time of Service: 13:30 SUBJECTIVE: Patient was resting comfortably in bed. No new complaints or concerns from the patient. No acute events reported overnight. REVIEW OF SYSTEMS CONSTITUTIONAL: Fevers, chills, malaise, poor oral intake NEUROLOGICAL: Generalized weakness, reports having had a fall about a month ago ENT: No hearing loss, otalgia, otorrhea, rhinitis, rhinorrhea, hoarseness, or sore throat. CARDIOVASCULAR: Denies any exertional angina, dyspnea on exertion, orthopnea, paroxysmal nocturnal dyspnea, palpitations, life-threatening arrhythmias, claudication. PULMONARY: No active shortness of breath, mild shortness of breath last couple of days SLEEP: Denies morning headaches, daytime somnolence or napping. Denies difficulty falling asleep, staying asleep, waking from sleep. Denies knowledge of snoring. GASTROINTESTINAL: Reports having loose stool, no significant abdominal pain GENITOURINARY: Reports having urinary urgency ENDOCRINOLOGIC: Denies polyuria, polydipsia, polyphagia or heat/cold intolerances. HEMATOLOGIC: Reports having bruising ONCOLOGIC: Denies personal history of malignancy. DERMATOLOGIC: Significant bilateral lower extremity swelling PSYCHIATRIC: Denies any suicidal or homicidal ideation. Denies hallucinations. PHYSICAL EXAM GENERAL APPEARANCE: The patient is awake, alert, and oriented, in no acute cardiopulmonary distress. NEUROLOGICAL: Cranial nerves II-XII grossly intact. Motor is 5/5 in bilateral upper and lower extremities proximal to distal. No sensory deficits. HEENT: Face is symmetric. Pupils are equal and reactive. Extraocular movements are intact. NECK: Supple. No JVD. No thyromegaly. No submental, submandibular, pre- /postauricular, occipital or supraclavicular lymphadenopathy. CHEST: Normal chest expansion. No Telemetry. LUNGS: Absence of any rales, rhonchi or any wheezing. CARDIOVASCULAR: Regular. S1 and S2 normal. Murmur noted on 2nd right upper sternal longer ABDOMEN: Soft, nontender, and nondistended. There is no rebound, voluntary guarding, or rigidity. : Deferred. No Bernal. EXTREMITIES: Both lower extremities are edematous with 2+ pitting edema SKIN: Son reports having history of sacral ulcer as well Vital Signs (last 8hr) Date Time Temp Pulse Resp B/P (MAP) Pulse Ox O2 Delivery O2 Flow Rate FiO2 05/06/25 11:21 97.9 93 22 110/50 99 Venti Mask+ 8 99 05/06/25 07:55 97.9 80 24 146/80 97 Room Air* 0 21 05/06/25 05:54 98.6 83 19 176/74 96 Room Air* 0 21 LABS: Laboratory: Test 05/06/25 07:33 05/06/25 05:53 05/05/25 16:08 05/05/25 14:48 Range/Units Prothrombin Time 14.9 H 9.6-11.6 SEC Prothromb Time International Ratio 1.46 H 0.85-1.15 Activated Partial Thromboplast Time 36.0 #H 26.3-35.5 SEC Sodium Level 131 L 136-145 mmol/L Potassium Level 3.6 3.5-5.1 mmol/L Chloride Level 93 L 101-111 mmol/L Carbon Dioxide Level 26 21-32 mmol/L Blood Urea Nitrogen 49 H 7-18 mg/dL Creatinine 7.4 H 0.5-1.3 mg/dL Glomerular Filtration Rate Calc 7 >90 mL/min Random Glucose 69 L 70-105 mg/dL Total Calcium 7.6 L 8.5-10.1 mg/dL Phosphorus Level 3.8 2.5-4.9 mg/dL Magnesium Level 2.00 1.80-2.40 mg/dL Iron Level 97 65-175 mcg/dL Total Iron Binding Capacity 104 L 250-450 mcg/dL Percent Iron Saturation 93.2 H 30-44 % Ferritin 35478 H 30-400 ng/mL Total Bilirubin 1.7 H 0.2-1.0 mg/dL Aspartate Amino Transf (AST/SGOT) 106 H 10-37 U/L Alanine Aminotransferase (ALT/SGPT) 49 # 12-78 U/L Alkaline Phosphatase 128 50-136 U/L Total Protein 6.6 6.0-8.3 g/dL Albumin 2.1 #L 3.5-5.0 g/dL White Blood Count 22.7 H 4.8-10.8 K/uL Red Blood Count 2.47 L 4.50-6.20 MIL/uL Hemoglobin 9.1 L 14.0-18.0 g/dL Hematocrit 26.8 L 42-54 % Mean Corpuscular Volume 108.5 H 79-99 fL Mean Corpuscular Hemoglobin 36.8 H 27.0-33.0 pg Mean Corpuscular Hemoglobin Concent 34.0 32.0-36.0 g/dL Red Cell Distribution Width 14.5 11.0-15.5 % Platelet Count 103 L 130-400 K/uL Mean Platelet Volume 13.1 H 7.5-10.5 fL Immature Granulocyte % (Auto) 1.0 0-1 % Neutrophils (%) (Auto) 45.1 40.0-77.0 % Lymphocytes (%) (Auto) 38.8 21.0-51.0 % Monocytes (%) (Auto) 13.7 H 3.0-13.0 % Eosinophils (%) (Auto) 0.7 0.0-8.0 % Basophils (%) (Auto) 0.7 0.0-5.0 % Neutrophils # (Auto) 10.3 H 1.8-7.7 K/uL Lymphocytes # (Auto) 8.8 H 1.0-4.8 K/uL Monocytes # (Auto) 3.1 H 0.1-1.0 K/uL Eosinophils # (Auto) 0.15 0.00-0.70 K/uL Basophils # (Auto) 0.15 0.00-0.20 K/uL Absolute Immature Granulocyte (auto 0.22 0-1 K/uL Nucleated Red Blood Cells 0.1 0.0-0.19 % White Cell Morphology Comment See comments Influenza Type A Antigen Negative For Type A NEGATIVE Influenza Type B Antigen Negative For Type B NEGATIVE Urine Color YELLOW YELLOW Urine Appearance CLOUDY H CLEAR Urine pH 8.0 5.0-8.0 Urine Specific [place] 1.026 1.001-1.031 Urine Protein 100 H NEGATIVE mg/dL Urine Glucose (UA) NEGATIVE NEGATIVE mg/dL Urine Ketones NEGATIVE NEGATIVE mg/dL Urine Occult Blood MODERATE H NEGATIVE Urine Nitrate NEGATIVE NEGATIVE Urine Bilirubin NEGATIVE NEGATIVE mg/dL Urine Urobilinogen 2.0 H 0.2-1.0 mg/dL Urine Leukocyte Esterase 500 H NEGATIVE Oc/uL Urine RBC 6-10 H 0-1 /HPF Urine WBC TNTC H 0-1 /HPF Urine WBC Clumps (Auto) FEW 0-1 /HPF Urine Squamous Epithelial Cells RARE 0-2 /HPF Urine Bacteria FEW None Seen /HPF Test 05/05/25 13:40 05/05/25 10:40 05/05/25 10:06 Range/Units Lactic Acid Level 2.1 0.8-2.5 mmol/L SARS-CoV-2 Antigen (Rapid) PRESUMPTIVE NEGATIVE NEGATIVE Segmented Neutrophils % 56 40-70 % Lymphocytes % (Manual) 36 22-44 % Monocytes % (Manual) 4 2-9 % Differential Comment MANUAL DIFFERENTIAL Reactive Lymphocytes 4 H 0-0 % Platelet Morphology Comment SLIGHTLY DECREASED Red Blood Cell Morphology MACROCYTIC 1+ Erythrocyte Sedimentation Rate 26 H 0-20 MM/HR Direct Bilirubin 1.1 H 0.0-0.3 mg/dL Lactate Dehydrogenase 971 H 81-234 U/L Total Creatine Kinase 63 21-232 U/L Troponin I High Sensitivity 39 4-75 ng/L C-Reactive Protein, Quantitative 108.00 H 0.5-3.0 mg/L Vitamin B12 Level 1759 H 193-986 pg/mL Folic Acid (LAB) 7.50 2-20 ng/mL Procalcitonin 4.00 H 0.05-0.5 ng/mL Current Medications Medications (Trade) Dose Ordered Sig/Pereti Route PRN Reason Start Time Stop Time Status Last Admin Dose Admin Acetaminophen (TYLenol 325MG TAB) 650 mg Q6H PRN PO MILD PAIN (1-3) 05/05/25 12:00 06/04/25 11:59 05/05/25 19:39 650 MG Amlodipine Besylate (NorvASC 5MG TAB) 5 mg DAILY PO 05/06/25 09:00 06/05/25 08:59 05/06/25 11:18 5 MG Atorvastatin Calcium (LIPItor 40MG) 40 mg HS PO 05/05/25 21:00 06/04/25 20:59 05/05/25 21:30 40 MG Cinacalcet (Sensipar 30mg Tab) 30 mg DAILYBKFST PO 05/06/25 08:00 06/05/25 07:59 05/06/25 11:17 30 MG Famotidine (Pepcid 20mg Tab) 20 mg Q48H PO 05/05/25 21:00 05/05/25 13:50 DC Heparin Sodium (Porcine) (HEParin 5,000 UNIT VIAL) *calculation based on ACTUAL B... AD PRN IV HEPARIN PROTOCOL 05/05/25 15:00 06/04/25 14:59 05/06/25 11:31 3,500 UNIT Heparin Sodium (Porcine) (HEParin 5,000 UNIT VIAL) 5,000 unit BID SQ 05/05/25 21:00 05/05/25 13:50 DC Heparin Sodium/ Dextrose 250 ml @ 0 mls/hr Q6H IV 05/05/25 15:00 06/04/25 14:59 05/05/25 16:40 10.2 MLS/HR Hydralazine HCl (APRESOLine 20MG INJ) 5 mg Q6H PRN IV ADMINISTER FOR SBP > 160 05/05/25 13:00 06/04/25 12:59 05/06/25 05:57 5 MG Lisinopril (Prinivil 20mg) 20 mg DAILY PO 05/06/25 09:00 06/05/25 08:59 Metoprolol Succinate (TopROL XL) 50 mg DAILY PO 05/06/25 09:00 06/05/25 08:59 Nystatin (NystOP 15 GM POWDER) apply to groin/buttocks BID TP 05/05/25 21:00 06/04/25 20:59 05/06/25 11:20 1 APPL Ondansetron HCl (zoFRAN 4MG INJ) 4 mg Q6H PRN IVP NAUSEA/VOMITING 05/05/25 12:00 06/04/25 11:59 Pantoprazole Sodium (PROTonix 40MG INJ) 40 mg Q24H IVP 05/05/25 14:00 06/04/25 13:59 05/06/25 11:17 40 MG Piperacillin Sod/ Tazobactam Sod (Zosyn 3.375gm+NS 50ml) 3.375 gm ONCE STAT IV 05/05/25 09:47 05/05/25 10:52 DC 05/05/25 11:08 3.375 GM Piperacillin Sod/ Tazobactam Sod (Zosyn 3.375gm+NS 50ml) 3.375 gm Q12H IVPB 05/05/25 22:00 05/15/25 21:59 05/06/25 11:17 3.375 GM Sodium Chloride 1,000 ml @ 0 mls/hr ONCE IV 05/05/25 15:30 06/04/25 15:29 05/05/25 21:00 1,000 MLS/HR Vancomycin HCl 100 ml @ 100 mls/hr TTHSPHD IV 05/06/25 16:00 05/16/25 15:59 Vancomycin HCl (Vancomycin Protocol) 1 each AD IV 05/05/25 12:00 05/19/25 11:59 Vitamin B Complex/ Vit C/Folic Acid (Nephrovite Tablet) 1 cap DAILY PO 05/06/25 09:00 06/05/25 08:59 05/06/25 11:17 1 CAP Wound Care/ Dressing Products (Venelex Ointment) 1 APPL BID TP 05/05/25 21:00 06/04/25 20:59 05/06/25 11:19 1 GM DIAGNOSTICS / RADIOLOGY: [ ] ASSESSMENT: Sepsis, POA Thrombocytopenia, mild, POA Anemia of renal failure, POA Macrocytosis, POA Hyponatremia, POA Hypokalemia, POA For hepatitis, mild, POA Sacral decubitus ulcer, POA Significant leukocytosis, POA Significant debility/frailty/deconditioning, POA Bilateral lower extremity edema, rule out DVT, POA Recent history of right knee patellar fracture, POA Rule out active urinary tract infection, POA Acute diarrhea, POA Underlying history of ESRD missing last two sessions of hemodialysis as outpatient, POA Hypertension, POA Hyperlipidemia, POA Cardiac murmur, POA PLAN: Patient will be admitted to cardiac telemetry floor Continue vancomycin/Zosyn Follow up results of blood culture and urine culture Follow up with Nephrology -hemodialysis as schedule Follow up with Hematology -bone scan would be unhelpful -suspect multiple myeloma, patient would need a skeletal scan versus PET scan Home medications were reconciled and updated Follow up with physical therapy consultation, son has stated that patient previously has declined any rehab or SNF, Follow up with case management assist with discharge planning/discharge needs Patient will be turned q.2 hours, patient will be placed on air bed, wound care consult will be requested for patient's history of sacral decubitus ulcer We will labs will be repeated in the morning (see including CBC and BMP) All antibiotics were renally dosed Continue DVT prophylaxis with heparin, GI prophylaxis with Pepcid Prognosis: Guarded Plan of care was discussed with patient's son at bedside, Advanced Care Planning: Which of the following were discussed: Hospice care: Yes __ No _X_ Therapeutic options: Yes _X_ No __ Advance directives: Yes _X_ No __ Other discussions: Discussed with who?: Patient Voluntary nature of this service was explained to the patient? Yes _x_ No __ Amount of time spent: 20 minutes SUN BLACKWOOD IV, MD May 06, 2025 13:40
[2025-05-06 13:45] LABS: HEPATITIS B CORE AB TOTAL Non-Reactive (Nonreactive); HEPATITIS B SURFACE ANTIBODY Negative (Reactive)
--- NOTE | 2025-05-06 14:27 | NUR ---
SPEECH NOTE CIRCUIT RIDER coordinated with nurse Bertrand. As per nurse, patient with decreased oral intake; however no s/s of aspiration. Recommend Sr. Consultant consult to follow up with decreased oral intake. Please re-consult speech therapy if any s/s of aspiration arise. All questions answered. Addendum: 05/06/[address] [facility] FREITAS Amended: Links added.
--- NOTE | 2025-05-06 15:09 | CONS ---
CONSULTATION NOTE Date of Service: May 06, 2025 Reason for Consultation: [ ] Requesting Physician: [ ] HISTORY OF PRESENT ILLNESS: [ ] REVIEW OF SYSTEMS CONSTITUTIONAL: Denies fever, chills, or fatigue. HEAD/FACE: No signs of trauma. EENT: Denies eye pain, blurred vision, double vision, or light sensitivity. RESPIRATORY: Denies shortness of breath, cough, wheezing CARDIOVASCULAR: Denies chest pain, palpitation, syncope GASTROINTESTINAL/ABDOMINAL: Denies abdominal pain, constipation, diarrhea, nausea or vomiting GENITOURINARY: Denies dysuria or hematuria. MUSCULOSKELETAL: Denies joint pain, tenderness, or trauma. INTEGUMENTARY: Denies rash or itchiness NEUROLOGICAL/PSYCH: Denies anxiety, depression, heat or cold intolerance. PAST MEDICAL HISTORY: [ ] PAST SURGICAL HISTORY: [ ] PAST SOCIAL HISTORY: [ ] FAMILY HISTORY: [ ] Coded Allergies: No Known Drug Allergies (Unverified Allergy, Unknown, 05/05/25) PHYSICAL EXAM EYES: Anicteric. Pupils equal and reactive. HENT: No oral thrush seen, moist Oral mucosa NECK: Supple, no JVD or thyromegaly. LUNGS: Good air entry. No rales, no rhonchi. CARDIOVASCULAR: S1, S2 regular. No murmur heard. ABDOMEN: Soft, non tender, bowel sounds present, no organomegaly CENTRAL NERVOUS SYSTEM: Awake, alert, oriented x 3. No focal deficits. SKIN: No rashes, no swelling. LYMPHATICS: No peripheral lymphadenopathy MUSCULOSKELETAL: No joint swelling, erythema or tenderness. EXTREMITIES: No cyanosis or clubbing BACK: No deformity, no pressure ulcer. GENITOURINARY: No dysuria or hematuria Vital Sign (Last 24 Hours) 05/06/25 13:49 Temp 97.9 Pulse 94 Resp 30 B/P (MAP) 95/31 Pulse Ox 100 O2 Delivery Venti Mask+ O2 Flow Rate 10 FiO2 99 Intake & Output (last 24hrs) 05/05/25 05/05/25 05/06/25 15:00 23:00 07:00 Output Total 1000 ml Balance -1000 ml LABS: Laboratory: Test 05/06/25 13:24 05/06/25 07:33 05/06/25 05:53 05/05/25 21:37 Range/Units Activated Partial Thromboplast Time 31.2 26.3-35.5 SEC Prothrombin Time 14.9 H 9.6-11.6 SEC Prothromb Time International Ratio 1.46 H 0.85-1.15 Sodium Level 131 L 136-145 mmol/L Potassium Level 3.6 3.5-5.1 mmol/L Chloride Level 93 L 101-111 mmol/L Carbon Dioxide Level 26 21-32 mmol/L Blood Urea Nitrogen 49 H 7-18 mg/dL Creatinine 7.4 H 0.5-1.3 mg/dL Glomerular Filtration Rate Calc 7 >90 mL/min Random Glucose 69 L 70-105 mg/dL Total Calcium 7.6 L 8.5-10.1 mg/dL Phosphorus Level 3.8 2.5-4.9 mg/dL Magnesium Level 2.00 1.80-2.40 mg/dL Iron Level 97 65-175 mcg/dL Total Iron Binding Capacity 104 L 250-450 mcg/dL Percent Iron Saturation 93.2 H 30-44 % Ferritin 08928 H 30-400 ng/mL Total Bilirubin 1.7 H 0.2-1.0 mg/dL Aspartate Amino Transf (AST/SGOT) 106 H 10-37 U/L Alanine Aminotransferase (ALT/SGPT) 49 # 12-78 U/L Alkaline Phosphatase 128 50-136 U/L Total Protein 6.6 6.0-8.3 g/dL Albumin 2.1 #L 3.5-5.0 g/dL Prostate Specific Antigen 3.720 0-4 ng/mL White Blood Count 22.7 H 4.8-10.8 K/uL Red Blood Count 2.47 L 4.50-6.20 MIL/uL Hemoglobin 9.1 L 14.0-18.0 g/dL Hematocrit 26.8 L 42-54 % Mean Corpuscular Volume 108.5 H 79-99 fL Mean Corpuscular Hemoglobin 36.8 H 27.0-33.0 pg Mean Corpuscular Hemoglobin Concent 34.0 32.0-36.0 g/dL Red Cell Distribution Width 14.5 11.0-15.5 % Platelet Count 103 L 130-400 K/uL Mean Platelet Volume 13.1 H 7.5-10.5 fL Immature Granulocyte % (Auto) 1.0 0-1 % Neutrophils (%) (Auto) 45.1 40.0-77.0 % Lymphocytes (%) (Auto) 38.8 21.0-51.0 % Monocytes (%) (Auto) 13.7 H 3.0-13.0 % Eosinophils (%) (Auto) 0.7 0.0-8.0 % Basophils (%) (Auto) 0.7 0.0-5.0 % Neutrophils # (Auto) 10.3 H 1.8-7.7 K/uL Lymphocytes # (Auto) 8.8 H 1.0-4.8 K/uL Monocytes # (Auto) 3.1 H 0.1-1.0 K/uL Eosinophils # (Auto) 0.15 0.00-0.70 K/uL Basophils # (Auto) 0.15 0.00-0.20 K/uL Absolute Immature Granulocyte (auto 0.22 0-1 K/uL Nucleated Red Blood Cells 0.1 0.0-0.19 % White Cell Morphology Comment See comments Hepatitis B Surface Antigen. Non-Reactive Nonreactive Hepatitis B Surface Antibody. Negative L Reactive Hepatitis B Core Total Antibody. Non-Reactive Nonreactive Test 05/05/25 16:08 05/05/25 14:48 05/05/25 13:40 05/05/25 10:40 Range/Units Influenza Type A Antigen Negative For Type A NEGATIVE Influenza Type B Antigen Negative For Type B NEGATIVE Urine Color YELLOW YELLOW Urine Appearance CLOUDY H CLEAR Urine pH 8.0 5.0-8.0 Urine Specific [place] 1.026 1.001-1.031 Urine Protein 100 H NEGATIVE mg/dL Urine Glucose (UA) NEGATIVE NEGATIVE mg/dL Urine Ketones NEGATIVE NEGATIVE mg/dL Urine Occult Blood MODERATE H NEGATIVE Urine Nitrate NEGATIVE NEGATIVE Urine Bilirubin NEGATIVE NEGATIVE mg/dL Urine Urobilinogen 2.0 H 0.2-1.0 mg/dL Urine Leukocyte Esterase 500 H NEGATIVE Oc/uL Urine RBC 6-10 H 0-1 /HPF Urine WBC TNTC H 0-1 /HPF Urine WBC Clumps (Auto) FEW 0-1 /HPF Urine Squamous Epithelial Cells RARE 0-2 /HPF Urine Bacteria FEW None Seen /HPF Lactic Acid Level 2.1 0.8-2.5 mmol/L SARS-CoV-2 Antigen (Rapid) PRESUMPTIVE NEGATIVE NEGATIVE Test 05/05/25 10:06 Range/Units Segmented Neutrophils % 56 40-70 % Lymphocytes % (Manual) 36 22-44 % Monocytes % (Manual) 4 2-9 % Differential Comment MANUAL DIFFERENTIAL Reactive Lymphocytes 4 H 0-0 % Platelet Morphology Comment SLIGHTLY DECREASED Red Blood Cell Morphology MACROCYTIC 1+ Erythrocyte Sedimentation Rate 26 H 0-20 MM/HR Direct Bilirubin 1.1 H 0.0-0.3 mg/dL Lactate Dehydrogenase 971 H 81-234 U/L Total Creatine Kinase 63 21-232 U/L Troponin I High Sensitivity 39 4-75 ng/L C-Reactive Protein, Quantitative 108.00 H 0.5-3.0 mg/L Vitamin B12 Level 1759 H 193-986 pg/mL Folic Acid (LAB) 7.50 2-20 ng/mL Procalcitonin 4.00 H 0.05-0.5 ng/mL DIAGNOSTICS / RADIOLOGY: [ ] PROBLEM LIST : Medical Problems: (1) ESRD needing dialysis ICD Codes: N18.6 - End stage renal disease; Z99.2 - Dependence on renal dialysis (2) Sepsis ICD Codes: A41.9 - Sepsis, unspecified organism PLAN: [ ] VIMAL PERSAUD NP May 06, 2025 15:09
[2025-05-06] MEDS: NOREPINEPHRIN 4MG/NS 250ML 250 ML IV SCH (15:49)
[2025-05-06 16:11] LABS: ABG BASE EXCESS -15.5 mmol/L (-2.0-3.0); ABG HCO3 8.6 mmol/L (21.0-28.0); ABG OXYGEN SATURATION 99.2 % (94.0-98.0); ABG PCO2 19 mmHg (35-48); ABG PH 7.281 (7.350-7.450); DEVICE COMMENT RR VERONICA, RN; PO2, ARTERIAL BG 194.3 mmHg (83.0-108.0); TEMPERATURE, CELSIUS BG 37.0 CELSIUS (35.5-37.0); VENT MODE, BG BIPAP 14.5 (ROOM AIR)
[2025-05-06] MEDS: DEXTROSE 50%-WATER 50 ML DISP.SYRIN IV ONE (16:32)
[2025-05-06] MEDS ORDERED: PHARMACY COMMUNICATION 1 EACH EACH MISC SCH (17:00)
[2025-05-06] MEDS: SODIUM BICARB 50MEQ 50ML VIAL 50 ML ONE (17:09)
[2025-05-06] MEDS: VANCOMYCIN 500MG+NS 100ML 100 ML IV SCH (17:09)
[2025-05-06] MEDS: SODIUM BICARB 50MEQ 50ML VIAL IV ONE (17:09)
--- NOTE | 2025-05-06 17:13 | NUR ---
critical labs for chloride of 90 and creatinine informed to primary nurse heath riley
--- NOTE | 2025-05-06 17:13 | EKG ---
[facility] Test Date: 2025-05-06 Test Time: 15:28:06 Pat Name: GREGORY STILSE Department: [facility] Room: 209 1 Gender: M Etl Lead: [id number] : 1940 Requested By: SUN BLACKWOOD Order Number: [id number] Reading MD: Crow Norton Measurements Intervals [place] Rate: 99 P: 35 MO: 140 QRS: 6 QRSD: 75 T: 67 QT: 351 QTc: 452 Interpretive Statements Sinus rhythm Nonspecific STT abnormality Compared to ECG 05/05/2025 10:34:50 Prolonged QT interval no longer present Electronically Signed On 05-07-2025 15:49:49 CDT by Crow Norton Please click the below link to view image of tracing.
--- NOTE | 2025-05-06 17:27 | PN ---
[facility] PROGRESS NOTE Date Patient Seen: May 06, 2025 Time of Visit: 17:27 Supervising Physician: [ ] Primary Care Physician: [ ] Outpatient Specialists: [ ] Inpatient Consults: [ ] PROBLEM LIST: 1. [ ] 2. [ ] 3. [ ] 4. [ ] 5. [ ] INTERVAL HISTORY: [ ] REVIEW OF SYSTEMS: 12 point ROS reviewed with patient. Pertinent positives mentioned above. Otherwise negative. PHYSICAL EXAM: GENERAL: alert, weak, awake oriented x 3 HEENT: EOMI, Sclera non icteric, moist mucosa NECK: Supple, no JVD, trachea midline LUNGS: Clear breath sounds bilaterally. No wheezes HEART: Regular rate and rhythm. Normal S1 and S2, without murmurs ABD: Abdomen soft, nontender. Bowel sounds present EXT: No clubbing cyanosis or edema NEURO: Alert and oriented to person, follows commands Vital Signs (last 8hr) Date Time Temp Pulse Resp B/P (MAP) Pulse Ox O2 Delivery O2 Flow Rate FiO2 05/06/25 17:12 99 Bi-PAP+ 100 05/06/25 16:35 96 34 40 05/06/25 16:23 95.4 98 33 152/39 99 Bi-PAP+ 100 05/06/25 15:59 95.0 103 34 99/33 99 Bi-PAP+ 100 05/06/25 15:57 97.9 103 34 99/33 100 Bi-PAP+ 14 100 05/06/25 15:49 97.9 98 34 136/57 100 Bi-PAP+ 14 100 05/06/25 15:49 136/57 05/06/25 15:45 100 36 40 05/06/25 13:49 97.9 94 30 95/31 100 Venti Mask+ 10 99 05/06/25 11:21 97.9 93 22 110/50 99 Venti Mask+ 8 99 LABS: Hematology Labs: Test 05/06/25 05:53 05/05/25 10:06 Range/Units White Blood Count 22.7 H 4.8-10.8 K/uL Red Blood Count 2.47 L 4.50-6.20 MIL/uL Hemoglobin 9.1 L 14.0-18.0 g/dL Hematocrit 26.8 L 42-54 % Mean Corpuscular Volume 108.5 H 79-99 fL Mean Corpuscular Hemoglobin 36.8 H 27.0-33.0 pg Mean Corpuscular Hemoglobin Concent 34.0 32.0-36.0 g/dL Red Cell Distribution Width 14.5 11.0-15.5 % Platelet Count 103 L 130-400 K/uL Mean Platelet Volume 13.1 H 7.5-10.5 fL Immature Granulocyte % (Auto) 1.0 0-1 % Neutrophils (%) (Auto) 45.1 40.0-77.0 % Lymphocytes (%) (Auto) 38.8 21.0-51.0 % Monocytes (%) (Auto) 13.7 H 3.0-13.0 % Eosinophils (%) (Auto) 0.7 0.0-8.0 % Basophils (%) (Auto) 0.7 0.0-5.0 % Neutrophils # (Auto) 10.3 H 1.8-7.7 K/uL Lymphocytes # (Auto) 8.8 H 1.0-4.8 K/uL Monocytes # (Auto) 3.1 H 0.1-1.0 K/uL Eosinophils # (Auto) 0.15 0.00-0.70 K/uL Basophils # (Auto) 0.15 0.00-0.20 K/uL Absolute Immature Granulocyte (auto 0.22 0-1 K/uL Nucleated Red Blood Cells 0.1 0.0-0.19 % White Cell Morphology Comment See comments Segmented Neutrophils % 56 40-70 % Lymphocytes % (Manual) 36 22-44 % Monocytes % (Manual) 4 2-9 % Differential Comment MANUAL DIFFERENTIAL Reactive Lymphocytes 4 H 0-0 % Platelet Morphology Comment SLIGHTLY DECREASED Red Blood Cell Morphology MACROCYTIC 1+ Erythrocyte Sedimentation Rate 26 H 0-20 MM/HR Chemistry Labs: Test 05/06/25 17:13 05/06/25 16:48 05/06/25 16:05 05/06/25 15:32 Range/Units Whole Blood Ketones Quantitative 1.7 H 0.0-0.6 mmol/L Lactic Acid Level 20.3 H 0.8-2.5 mmol/L Whole Blood Glucose 139 #H 70-110 MG/DL Bedside Glucose Comment Protocol Initiated Troponin I High Sensitivity 53 4-75 ng/L B-Type Natriuretic Peptide 212 H 0-100 pg/mL Test 05/06/25 07:33 05/05/25 10:06 Range/Units Phosphorus Level 3.8 2.5-4.9 mg/dL Magnesium Level 2.00 1.80-2.40 mg/dL Iron Level 97 65-175 mcg/dL Total Iron Binding Capacity 104 L 250-450 mcg/dL Percent Iron Saturation 93.2 H 30-44 % Ferritin 03096 H 30-400 ng/mL Prostate Specific Antigen 3.720 0-4 ng/mL Direct Bilirubin 1.1 H 0.0-0.3 mg/dL Lactate Dehydrogenase 971 H 81-234 U/L Total Creatine Kinase 63 21-232 U/L C-Reactive Protein, Quantitative 108.00 H 0.5-3.0 mg/L Vitamin B12 Level 1759 H 193-986 pg/mL Folic Acid (LAB) 7.50 2-20 ng/mL Procalcitonin 4.00 H 0.05-0.5 ng/mL Coagulation Labs: Test 05/06/25 13:24 05/06/25 07:33 Range/Units Activated Partial Thromboplast Time 31.2 26.3-35.5 SEC Prothrombin Time 14.9 H 9.6-11.6 SEC Prothromb Time International Ratio 1.46 H 0.85-1.15 DIAGNOSTICS / RADIOLOGY RESULTS: [ ] PLAN NEURO: Minimize central acting medications as possible. Fall Precautions. Well lighted room through the day and minimize interruptions through the night to prevent acute delirium. PULMONARY: Supplemental 02 as needed Titrate Fio2 to keep Spo2 > or = 90% DuoNebs and CPT as needed IS hourly while awake for pulmonary hygiene Out of bed to chair as tolerated VAP Bundle Vent/BIPAP Settings: [ ] Driving pressure: [ ] P Plat: [ ] Static C: [ ] Static R: [ ] P/F Ratio: [ ] CARDIOVASCULAR: Follow hemodynamics. Titrate vasopressor to keep MAP >65 or systolic blood pressure >95mmHg DIPS: [ ] LINES: [ ] GI & NUTRITION: Continue nutritional support Aspirations precautions Prokinetic agents and laxatives as needed KIDNEYS & ELECTROLYTES: Strict monitoring of intake and output Daily weights Avoid nephrotoxic agents Monitor electrolytes and replace as needed Goal urine output of 30mL/hr or 0.5mL/kg/hr Urine output: [ ] Fluid Balance: [ ] ENDOCRINE: Maintain blood glucose between 100-180 at all times. Insulin sliding scale for blood glucose management INFECTIOUS DISEASE: Trend temperature. Zuñiga-culture if febrile. Micro: [ ] Antibiotics: [ ] HEMATOLOGY & COAGULATION: Monitor H&H. Keep Hgb > 7 Transfuse 1 unit of PRBC for Hgb < 7 Transfuse 1 pack of platelets of platelets < 20, 000 Watch for any signs and symptoms of bleeding SKIN: Pressure ulcer prevention per facility protocol Rehab: PT/OT Prophylaxis: GI: [ ] DVT: [ ] Code Status: Full Resuscitation Disposition: [ ] Other: Total patient care time exceeds 35 minutes excluding all procedures. Case was discussed and seen with my supervising physician. The above plan was formulated and agreed upon. URMILA POOLE [facility] May 06, 2025 17:27
[2025-05-06] MEDS ORDERED: MEROPENEM 500MG 500 MG VIAL IVPB SCH ×2 (17:30→18:00)
--- NOTE | 2025-05-06 17:34 | NUR ---
CT ON HOLD AT THIS TIME, CAN SAHU PT UNSTABLE FOR TRIP TO CT. WILL CALL BACK WITH UPDATE WHEN READY.
[2025-05-06 17:36] LABS: ASPARTATE AMINOTRANSFERASE 303.0 U/L (10-37); GLOMERULAR FILTR. RATE CALC 5.0 mL/min (>90); GLUCOSE,RANDOM 119.0 mg/dL (70-105); SODIUM SERUM 140.0 mmol/L (136-145); TOTAL PROTEIN, SERUM 4.8 g/dL (6.0-8.3); UREA NITROGEN, BLOOD 55.0 mg/dL (7-18)
[2025-05-06 17:41] LABS: CREATINE KINASE, TOTAL 155.0 U/L (21-232)
[2025-05-06] MEDS: 0.9% NACL 500ML IV.SOLN 500 ML IV SCH (17:41)
[2025-05-06 18:02] LABS: IMMATURE GRANULOCYTE ABSOLUTE 0.44 K/uL (0-1); NUCLEATED RED BLOOD CELLS 0.3 % (0.0-0.19); PLATELET COUNT (AUTO) 86 K/uL (130-400); RED BLOOD CELL COUNT(AUTO) 1.63 MIL/uL (4.50-6.20); RED CELL DISTRIBUTION WIDTH 15.0 % (11.0-15.5); WHITE BLOOD COUNT (AUTO) 18.1 K/uL (4.8-10.8)
[2025-05-06 18:17] LABS: CREATININE 8.9 mg/dL (0.5-1.3)
[2025-05-06] MEDS ORDERED: NOREPINEPHRINE 16MG/NS 250ML PREMIX IV SCH (18:30)
[2025-05-06] MEDS ORDERED: VASOpressin 20 UNITS/ML 1ML Vi 20 UNITS in 0.9%NACL 100ML 100 ML IV SCH (18:30)
[2025-05-06 18:56] LABS: LYMPHOCYTES % (MANUAL) 20 % (22-44); MAN.DIFF COMMENT-IMPRESSION MANUAL DIFFERENTIAL; MONOCYTES % (MANUAL) 3 % (2-9); PLATELET MORPHOLOGY COMMENT DECREASED; SEGMENTED NEUTROPHILS % 77 % (40-70); WBC MORPHOLOGY CONSISTENT W/DIFF
--- NOTE | 2025-05-06 19:00 | NUR ---
BEDSIDE REPORT RECEIVED ON PATIENT WITH AM NURSE, PATIENT UNRESPONSIVE TO STERNAL RUB, UNABLE TO OBTAIN BLOOD PRESSURE. HR 60S, TEMP 90.1 CRITICAL CARE MD PAGED. PER AM NURSE PATIENT UNABLE TO OBTAIN BP SINCE ADMIT TO FLOOR.
--- NOTE | 2025-05-06 19:08 | NUR ---
UNABLE TO OBTAIN BPS, PENDING RETURN PAGE
--- NOTE | 2025-05-06 19:13 | HMCIMG ---
EXAM: XR Chest, 1 View(s). CLINICAL HISTORY: Hypoxia COMPARISON: None provided. FINDINGS: LUNGS: The lungs are clear. No consolidation. PLEURAL SPACES: No pleural effusion or pneumothorax. HEART: The heart size is normal. BONES: No acute osseous abnormality. LINES AND TUBES: There is tubing projected over the right chest. VASCULATURE: A vascular stent is projected over the left apical region. IMPRESSION: 1. No acute findings. /[place]
[2025-05-06] MEDS: NOREPINEPHRIN 4MG/NS 250ML 250 ML IV ONE (19:19)
--- NOTE | 2025-05-06 19:24 | NUR ---
ROSC ACHIEVED PATIENT INTUBATED 7.5 @ 26 LIP
--- NOTE | 2025-05-06 19:25 | NUR ---
UNABLE TO GET BLOOD PRESSURE, RYTHYM CHANGES NOTED ON MONITOR, AFIB TO JUNCTIONAL THEN V- FIB, NO PALPABLE PULSE. BRAD MERCER CALLED. Addendum: 05/06/25 at 2308 by KARRIE CORADO RN RN TIME OF NOTE AND BRAD MERCER 1917
--- NOTE | 2025-05-06 19:31 | PN ---
Code Blue Note Event Date: [ 05/06/2025 ] Event Time: [1920 ] Code Status: [Full Code ] Type of Arrest: [Cardiopulmonary arrest ] Events Prior to Arrest: [Patient is admitted in ICU on 05/05/2025for sepsis,anemia,renal failure on hemodialysis and left lower extremity DVT and was started on heparin drip and was admitted in ICU .Today patient coded x3 . ] Event: [At around 1919 patient coded and was able to obtain ROSC @1923 and patient was intubated around 1924.Patient coded again around 1944 with asystole rhythm ACLS was performed per staff and able to obtain ROSC 1948.Around 2121 patient coded again however son stopped the code and requested patient to be DNR and patient . ] KASIE MAI [facility] May 06, 2025 19:31
--- NOTE | 2025-05-06 19:33 | NUR ---
CRITICAL CARE PAGED PENDING CALL BACK
--- NOTE | 2025-05-06 19:45 | NUR ---
UNABLE TO GET BLOOD PRESSURES PATIENT KEISHA 30S- NO PALPABLE PULSE NOTED CODE BLUE CALLED
--- NOTE | 2025-05-06 19:49 | NUR ---
ROSC ACHIEVED CRITICAL CARE PAGED AGAIN, PENDING CALL BACK
[2025-05-06 19:59] LABS: ABG BASE EXCESS 1.5 mmol/L (-2.0-3.0); ABG HCO3 26.0 mmol/L (21.0-28.0); ABG OXYGEN SATURATION 99.5 % (94.0-98.0); ABG PCO2 40 mmHg (35-48); ABG PH 7.428 (7.350-7.450); CARBON MONOXIDE 0.3 % (0.5-1.5); DEVICE COMMENT RB,RNIRMA; TEMPERATURE, CELSIUS BG 37.0 CELSIUS (35.5-37.0); VENT MODE, BG AC VC (ROOM AIR)
[2025-05-06] MEDS ORDERED: SODIUM BICARB IV SCH (20:00)
[2025-05-06] MEDS: MEROPENEM 500MG 500 MG VIAL IVPB SCH (20:00)
[2025-05-06] MEDS ORDERED: PHARMACY COMMUNICATION MISC SCH (20:00)
[2025-05-06] MEDS ORDERED: WATER IV SCH (20:00)
[2025-05-06 20:02] LABS: NUCLEATED RED BLOOD CELLS 1.5 % (0.0-0.19); PLATELET COUNT (AUTO) 74.0 K/uL (130-400); RED BLOOD CELL COUNT(AUTO) 1.0 MIL/uL (4.50-6.20); RED CELL DISTRIBUTION WIDTH 15.2 % (11.0-15.5); WHITE BLOOD COUNT (AUTO) 12.2 K/uL (4.8-10.8)
--- NOTE | 2025-05-06 20:05 | NUR ---
PATIENT KEISHA TO 30S ATROPINE X1 GIVEN
[2025-05-06 20:25] LABS: GLOMERULAR FILTR. RATE CALC 6.0 mL/min (>90); SODIUM SERUM 148.0 mmol/L (136-145); TOTAL PROTEIN, SERUM 3.6 g/dL (6.0-8.3); UREA NITROGEN, BLOOD 51.0 mg/dL (7-18)
[2025-05-06 20:30] LABS: CREATININE 8.2 mg/dL (0.5-1.3); GLUCOSE,RANDOM 30.0 mg/dL (70-105)
[2025-05-06 20:31] LABS: ASPARTATE AMINOTRANSFERASE 1758.0 U/L (10-37)
--- NOTE | 2025-05-06 20:35 | HMCIMG ---
Examination: Chest, 1 view Clinical history: Shortness of breath Comparison: Radiograph from earlier today Findings: Endotracheal tube terminates 5.0 cm above the lester. Lungs are clear. No pleural effusion or pneumothorax. Heart size and pulmonary vessels are within normal limits. Vascular stent unchanged in position. IMPRESSION: 1. No acute cardiopulmonary findings. 2. Endotracheal tube appropriately positioned. /[place]
--- NOTE | 2025-05-06 20:40 | NUR ---
DR BREWER RETURNED CALL, NEW ORDERS RECEIVED AND CARRIED OUT
--- NOTE | 2025-05-06 20:47 | CONS ---
[facility] CONSULTATION NOTE Date Patient Seen: May 06, 2025 Time of Visit: 16:30 Supervising Physician:Romeo Keith MD Reason for Consultation: [facility] Primary Care Physician: Yifan Conley Outpatient Specialists:DR Mattson, Dr Landers, DIEGO, Mera Ash Inpatient Consults: PROBLEM LIST: Septic shock combination with hypovolemia shock POA Acute complicated gram negative cystitis POA Acute hypoxic resp failure POA Acute Toxic Metabolic encephalopathy POA Hyperammonemia POA Acute metabolic acidosis POA Thrombocytopenia, mild, POA Acute on chronic anemia, POA Leukocytosis POA Electrolyte derangement, POA (Hyponatremia, hypokalemia) Transaminitis POA Hyperammonemia POA Sacral decubitus ulcer, POA Significant debility/frailty/deconditioning, POA LLE DVT , POA Recent history of right knee patellar fracture, POA Rule out active urinary tract infection, POA Acute diarrhea, POA Underlying history of ESRD missing last two sessions of hemodialysis as outpatient, POA Hypertension, POA Hyperlipidemia, POA Cardiac murmur, POA HPI: The patient is a 85-year-old male with a past medical history of end-stage renal disease on hemodialysis, left arm AV fistula, hypertension, hyperlipidemia, and chronic anemia who presented to the ED on 05/05/25 for generalized body weakness, fever, per oral intake and increasing debility ongoing for one week. History was provided by the patient's son indicating that the symptoms began around April09/29/24 with daily fevers, congestion, diarrhea 2-4 episodes today and reduced oral intake. Patient also developed progressive lower extremity edema requiring the use of walker more frequently for ambulation. There is a history of a fall about a month ago with suspected right-sided knee fracture being managed conservatively by Orthopedics as an outpatient. The son additionally reports left groin pain with suspected urinary discharge. Patient has been several dialysis sessions due to malaise. Per patient's son patient was evaluated recently at [facility] ER where COVID test was negative urinalysis was reported unremarkable. On arrival to the [facility] ED this admission he was short of breath with productive cough and placed on BiPAP for acute respiratory distress. He was found to have severe metabolic acidosis requiring three ampules of IV sodium bicarb he received empiric antibiotics Zosyn and vancomycin and was admitted to the ICU for critical care management. Patient was also hypotensive requiring vasopressor support with marginal blood pressures. PAST MEDICAL HX: see above PAST SURGICAL HX: noncontributory SOCIAL HISTORY: No tobacco, ETOH, or illicit drug use Coded Allergies: No Known Drug Allergies (Unverified Allergy, Unknown, 05/05/25) REVIEW OF SYSTEMS: Unable to perform due to patient's encephalopathy. PHYSICAL EXAM: GENERAL: Awake alert to name follows simple commands. HEENT: EOMI, Sclera non icteric, moist mucosa NECK: Supple, no JVD, trachea midline LUNGS: Clear breath sounds bilaterally. No wheezes HEART: Regular rate and rhythm. Normal S1 and S2, without murmurs ABD: Abdomen soft, nontender. Bowel sounds present EXT: No clubbing cyanosis or edema NEURO: GCS of 14, generally weak, debilitated. Vital Signs (last 8hr) Date Time Temp Pulse Resp B/P (MAP) Pulse Ox O2 Delivery O2 Flow Rate FiO2 05/06/25 19:19 88/45 05/06/25 17:12 99 Bi-PAP+ 100 05/06/25 16:35 96 34 40 05/06/25 16:23 95.4 98 33 152/39 99 Bi-PAP+ 100 05/06/25 15:59 95.0 103 34 99/33 99 Bi-PAP+ 100 05/06/25 15:57 97.9 103 34 99/33 100 Bi-PAP+ 14 100 05/06/25 15:49 97.9 98 34 136/57 100 Bi-PAP+ 14 100 05/06/25 15:49 136/57 05/06/25 15:45 100 36 40 05/06/25 13:49 97.9 94 30 95/31 100 Venti Mask+ 10 99 LABS: Hematology Labs: Test 05/06/25 19:42 05/06/25 17:49 05/05/25 10:06 Range/Units White Blood Count 12.2 #H 4.8-10.8 K/uL Red Blood Count 1.00 #L 4.50-6.20 MIL/uL Hemoglobin 3.6 #*L 14.0-18.0 g/dL Hematocrit 11.7 #*L 42-54 % Mean Corpuscular Volume 117.0 H 79-99 fL Mean Corpuscular Hemoglobin 36.0 H 27.0-33.0 pg Mean Corpuscular Hemoglobin Concent 30.8 L 32.0-36.0 g/dL Red Cell Distribution Width 15.2 11.0-15.5 % Platelet Count 74 L 130-400 K/uL Mean Platelet Volume 12.4 H 7.5-10.5 fL Nucleated Red Blood Cells 1.5 H 0.0-0.19 % Immature Granulocyte % (Auto) 2.4 H 0-1 % Neutrophils (%) (Auto) 55.7 40.0-77.0 % Lymphocytes (%) (Auto) 28.6 21.0-51.0 % Monocytes (%) (Auto) 12.9 3.0-13.0 % Eosinophils (%) (Auto) 0.1 0.0-8.0 % Basophils (%) (Auto) 0.3 0.0-5.0 % Neutrophils # (Auto) 10.1 H 1.8-7.7 K/uL Lymphocytes # (Auto) 5.2 H 1.0-4.8 K/uL Monocytes # (Auto) 2.3 H 0.1-1.0 K/uL Eosinophils # (Auto) 0.01 0.00-0.70 K/uL Basophils # (Auto) 0.05 0.00-0.20 K/uL Absolute Immature Granulocyte (auto 0.44 0-1 K/uL Segmented Neutrophils % 77 H 40-70 % Lymphocytes % (Manual) 20 L 22-44 % Monocytes % (Manual) 3 2-9 % Differential Comment MANUAL DIFFERENTIAL White Cell Morphology Comment CONSISTENT W/DIFF Platelet Morphology Comment DECREASED Red Blood Cell Morphology ANISO 1+ Reactive Lymphocytes 4 H 0-0 % Erythrocyte Sedimentation Rate 26 H 0-20 MM/HR Chemistry Labs: Test 05/06/25 20:07 05/06/25 19:42 05/06/25 17:49 05/06/25 17:13 Range/Units Whole Blood Glucose 462 #*H 70-110 MG/DL Bedside Glucose Comment Notified Nurse Lactic Acid Level 26.0 H 0.8-2.5 mmol/L B-Type Natriuretic Peptide 185 H 0-100 pg/mL Whole Blood Ketones Quantitative 1.7 H 0.0-0.6 mmol/L Total Creatine Kinase 155 # 21-232 U/L Troponin I High Sensitivity 48.7 4-75 ng/L Test 05/06/25 07:33 9/8/25 10:06 Range/Units Phosphorus Level 3.8 2.5-4.9 mg/dL Magnesium Level 2.00 1.80-2.40 mg/dL Iron Level 97 65-175 mcg/dL Total Iron Binding Capacity 104 L 250-450 mcg/dL Percent Iron Saturation 93.2 H 30-44 % Ferritin 69552 H 30-400 ng/mL Prostate Specific Antigen 3.720 0-4 ng/mL Direct Bilirubin 1.1 H 0.0-0.3 mg/dL Lactate Dehydrogenase 971 H 81-234 U/L C-Reactive Protein, Quantitative 108.00 H 0.5-3.0 mg/L Vitamin B12 Level 1759 H 193-986 pg/mL Folic Acid (LAB) 7.50 2-20 ng/mL Procalcitonin 4.00 H 0.05-0.5 ng/mL Coagulation Labs: Test 05/06/25 13:24 05/06/25 07:33 Range/Units Activated Partial Thromboplast Time 31.2 26.3-35.5 SEC Prothrombin Time 14.9 H 9.6-11.6 SEC Prothromb Time International Ratio 1.46 H 0.85-1.15 DIAGNOSTICS / RADIOLOGY RESULTS: [place] [address] IMAGING REPORT Signed PATIENT: GREGORY STILES MR#: [id number] : 1940 SEX: M AGE: 85 LOCATION: [facility] ORDER 1158 STATUS: ADM IN REPORT#: [id number] SERVICE 1157 REASON: MURMUR, SEPSIS, HEART CLINIC TO READ ORDERING PHYSICIAN: EMY CHARLES MD PROCEDURE: ECHO CMP - ECHO 2-D COMPLETE APPROVED REPORT EXAM: Two-dimensional and M-mode echocardiogram with Doppler and color Doppler. INDICATION ICD: R01.1 Cardiac murmur, unspecified, sepsis 2D Dimensions RVDd 4.0 cm LVEF(%) 65.4 (>50%) LVED Vol(simp.) 80.0 mL IVSd 0.8 (0.7-1.1cm) FS(%) 36 % LVES Vol(simp.) 34.0 mL LVDd 4.7 (3.8-5.6cm) LA (2D) 4.8 (1.6-4.0cm) LVEF(%, simp.) 58 % PWd 0.8 (0.7-1.1cm) Ao Root(2D) 3.0 (2.0-3.7cm) LA ESV INDEX (BP) 37.16 mL/m2 IVSs 0.9 cm LVOT diam 2.0 (1.8-2.4cm) LVDs 3.0 (2.5-4.0cm) IVC diam 1.8 cm PWs 1.3 cm Deformation Strain Apical 4 -19.2 % Apical 2 -17.3 % Apical 3 -17.7 % Global Strain -18.1 % M-Mode Dimensions EPSS 0.7 cm LA (MM) 4.7 (1.6-4.0cm) Ao Root(MM) 2.5 (2.0-3.7cm) Aortic Valve AoV Vmax 1.6 m/s Ao Peak GR 10.5 mmHg LVOT Vmax 1.4 m/s AoV VTI 0.3 m Ao Mean GR 5.9 mmHg LVOT VTI 0.33 m ARMANDO (VMAX) 2.88 cm2 ARMANDO (VTI) 3.5 cm2 Mitral Valve MV E Vmax 101.8 cm/s DECEL Time 197 ms MV A Vmax 128.7 cm/s P 1/2 T 67 ms E/A ratio 0.8 MVA (PHT) 3.3 cm2 TDI E/E' Medial 20.0 E/E' Lateral 13.2 Medial E' Peak V 5.09 cm/s Lateral E' Peak V 7.71 cm/s Pulmonary Valve PV Vmax 1.1 m/s PV VTI 0.23 m PV Mean GR 2.7 mmHg PV Peak GR 4.5 mmHg Tricuspid Valve TR Vmax 2.6 m/s RAP (EST) 3 mmHg RVSP 32.0 mmHg TR Peak GR 29.0 mmHg Left Ventricle The left ventricle is normal size. GLS -18.0% There is normal LV segmental wall motion. There is normal left ventricular wall thickness. The LVEF is > 55%. Stage I diastolic dysfunction. Right Ventricle The right ventricle is normal size. The right ventricular systolic function is normal. Atria The left atrium is mildly dilated. The right atrium is mildly dilated. Aortic Valve The aortic valve is normal in structure. No aortic regurgitation is present. There is no aortic valvular stenosis. Mitral Valve The mitral valve is normal in structure. There is no mitral valve regurgitation noted. There is no mitral valve stenosis. Tricuspid Valve The tricuspid valve is normal in structure. There is trace of tricuspid valve regurgitation noted. Pulmonic Valve The pulmonary valve is normal in structure. There is no pulmonic valvular regurgitation. Great Vessels The aortic root is normal in size. The IVC is normal in size and collapses >50% with inspiration. Pericardium There is no pericardial effusion. Other Information Quality : Adequate Conclusion The LVEF is > 55%. Stage I diastolic dysfunction. GLS -18.0% There is normal LV segmental wall motion. The left atrium is mildly dilated. There is no pericardial effusion. DICTATED BY: ERNESTINE DELAROSA MD DATE: 05/05/25 1314 ELECTRONICALLY SIGNED BY: ERNESTINE DELAROSA MD DATE: 05/05/25 [address] [place] [id number] IMAGING REPORT Signed PATIENT: GREGORY STILES MR#: [id number] : 1940 SEX: M AGE: 85 LOCATION: [facility] ORDER 52 STATUS: ADM IN REPORT#: [id number] SERVICE 51 REASON: HYPOXIC REPS FAILURE ORDERING PHYSICIAN: URMILA POOLE PROCEDURE: CXR1VW - CHEST 1VW EXAM: XR Chest, 1 View(s). CLINICAL HISTORY: Hypoxia COMPARISON: None provided. FINDINGS: LUNGS: The lungs are clear. No consolidation. PLEURAL SPACES: No pleural effusion or pneumothorax. HEART: The heart size is normal. BONES: No acute osseous abnormality. LINES AND TUBES: There is tubing projected over the right chest. VASCULATURE: A vascular stent is projected over the left apical region. IMPRESSION: 1. No acute findings. /[place] DICTATED BY: DENNISE WYMAN MD DATE: 05/06/252011 ELECTRONICALLY SIGNED BY: DENNISE WYMAN MD DATE: 05/06/252011 PLAN Hypotension requiring vasopressor support with Levophed with marginal blood pressures. Maintain map above 65. Continue follow Nephrology recommendations. He underwent dialysis overnight with a 1 L ultrafiltration. Pending next hemodialysis treatment tomorrow. ABG on ICU arrival shows a pH of 7.28, pCO2 of 19, PO2 of 284, bicarb of 8.6, base deficit of-15.5 with a O2 saturation 99.2. Ordered for three amps of sodium bicarb and administered by RN at the bedside. Stat CBC, CMP, lactic acid, ketones, chest x-ray. Switch Zosyn to meropenem and continue vancomycin Code status: Full code per family request This is a critically ill 85-year-old male with a ESRD who presented with fever, diarrhea, missed dialysis and progressive weakness. He was admitted with severe metabolic acidosis, leukocytosis, elevated inflammatory markers, transaminitis, hyperferritinemia and septic shock requiring vasopressor support. He remains in the ICU per continue hemodynamics support renal replacement therapy and sepsis management. NEURO: Minimize central acting medications as possible. Fall Precautions. Well lighted room through the day and minimize interruptions through the night to prevent acute delirium. PULMONARY: Supplemental 02 as needed Titrate Fio2 to keep Spo2 > or = 90% DuoNebs and CPT as needed IS hourly while awake for pulmonary hygiene Out of bed to chair as tolerated BiPAP 10/5 FiO2 of 40% CARDIOVASCULAR: Follow hemodynamics. Titrate vasopressor to keep MAP >65 or systolic blood pressure >95mmHg Continuous cardiac monitoring DIPS: Levophed to maintain map above 65 LINES: PIV Pending PICC line GI & NUTRITION: Aspirations precautions Prokinetic agents and laxatives as needed NPO for now KIDNEYS & ELECTROLYTES: Strict monitoring of intake and output Daily weights Avoid nephrotoxic agents Monitor electrolytes and replace as needed Follow Nephrology recommendations ENDOCRINE: Maintain blood glucose between 100-180 at all times. Insulin sliding scale for blood glucose management Fingersticks Q 1 hour avoid hypoglycemia INFECTIOUS DISEASE: Trend temperature. Zuñiga-culture if febrile. Micro: [ ] Blood cultures Urine cultures Gram-negative rods Respiratory cultures Antibiotics: [ ] Meropenem Vancomycin HEMATOLOGY & COAGULATION: Monitor H&H. Keep Hgb > 7 Transfuse 1 unit of PRBC for Hgb < 7 Transfuse 1 pack of platelets of platelets < 20, 000 Watch for any signs and symptoms of bleeding SKIN: Pressure ulcer prevention per facility protocol Rehab: PT/OT Prophylaxis: GI: [Protonix DVT: Patient was placed on heparin drip per left lower extremity DVT per primary team Code Status: Full Resuscitation Disposition: ICU Other: Critical care time This patient required multiple bedside visits to manage the patient, review blood gases, coordinate with respiratory, nurses, review radiology exams, talk to the family members and discuss advanced directives. I personally spent [60 minutes of critical care time in treatment of this patient. This includes patient management, time at bedside, time reviewing tests, labs, appropriate images and studies, documentation, and patient care coordination. This time excludes separately billable procedures. ATTESTATION BY PHYSICIAN I attest that I reviewed and discussed the case with the Physician Rn Clinical Appeals as well as agree with the Physician Rn Clinical Appeals's findings, plans of care, and documentation above. Aamir Ray MD, [facility] May 06, 2025 20:47
[2025-05-06] MEDS ORDERED: CALCIUM GLUC 1GM/10ML VIAL IVPB SCH (21:00)
--- NOTE | 2025-05-06 21:27 | NUR ---
RHYTHM CHANGES NOTED, PAUSES ON MONITOR HR 30-40S NO PALPABLE PULSE FELT, UNABLE TO OBTAIN WITH DOPPLER INITIATION OF CODE BLUE STARTED, SON AT BEDSIDE, ASKED TO STOP ALL EFFORTS DNR SIGNED PATIENT ASYSTOLE ON MONITOR, ER , DR. FOREMAN PRONOUNCED PATIENT @[phone]
[2025-05-06] MEDS: SODIUM BICARB 50MEQ 50ML VIAL 150 MEQ in DEXTROSE 5%-WATER 1,000 ML IV SCH (21:30)
[2025-05-06] MEDS ORDERED: CALCIUM GLUC 1GM 2 GM in 0.9%NACL 100ML 100 ML IV SCH (21:30)
--- NOTE | 2025-05-06 22:15 | DS ---
NOTE Date/Time of : [05/06/2025 @2130] Code Status: [ Full code] Events prior to patient's : [Patient is admitted in ICU on 05/05/2025for sepsis,anemia,renal failure on hemodialysis and left lower extremity DVT and was started on heparin drip and was admitted in ICU .Today patient coded x3 . ] Events related to : [Patient has been coded 2 x today and already intubated with ongoing blood transfusion and patient converted into PEA and coded again for the 3rd time around 2121 however son requested to stop the code and made patient DNR ] Cause: [ sepsis and cardiopulmonary arrest] Manner/Autopsy: [N/A ] Provider Pronouncing : [ ER DR Jeffrey Diaz] Attending Physician: [ Dr. Barney Duarte ] KASIE MAI DRY PAN FEEDER May 06, 2025 22:15
--- NOTE | 2025-05-06 23:17 | NUR ---
POST MORTEM CARE PROVIDE EMOTIONAL SUPPORT PROVIDE TO FAMILY
--- NOTE | 2025-05-07 03:57 | CONS ---
INFECTIOUS DISEASE CONSULTATION DATE OF SERVICE: 05/06/2025 REQUESTING PHYSICIAN: Manuel Rayo MD REASON FOR CONSULTATION: Sepsis, on antibiotic management. HISTORY OF PRESENT ILLNESS: An 85-year-old male with a history of ESRD on dialysis, hypertension, dyslipidemia and anemia presented to the hospital with fever, chills, and poor oral intake. The patient was found with increasing weakness by family. The patient was brought to the Emergency Room where he was found with possible sepsis, temperature was 101.5. WBC was elevated at 20,000. Serum procalcitonin was positive. Urinalysis was positive and the patient was started on Zosyn. No cough, no shortness of breath. No diarrhea, no abdominal pain. No bleeding tendency. PAST MEDICAL HISTORY: * ESRD, on dialysis. * Hypertension. * Dyslipidemia. * Anemia. * UTI. PAST SURGICAL HISTORY: * Cholecystectomy. * AV fistula surgery. ALLERGIES: No known drug allergies. CURRENT MEDICATIONS: Reviewed. SOCIAL HISTORY: Lives with son. No alcohol, tobacco or illicit drug use. FAMILY HISTORY: Noncontributory. REVIEW OF SYSTEMS: CONSTITUTIONAL: Positive for fever, chills, and weakness. No weight loss or night sweats. EYES: No eye pain. No photophobia or diplopia. HENT: No sore throat. No rhinorrhea or earache. NECK: No neck pain or neck swelling. RESPIRATORY: Denies cough, hemoptysis, or pleuritic pain. CARDIOVASCULAR: No chest pain. No palpitation or orthopnea. GASTROINTESTINAL: No nausea, vomiting, or abdominal pain. GENITOURINARY: Positive for dysuria. No hematuria. CENTRAL NERVOUS SYSTEM: No headache, dizziness, or slurred speech. PSYCHIATRY: No depression. No suicidal ideation. MUSCULOSKELETAL: No joint pain or joint swelling. PHYSICAL EXAMINATION: GENERAL: Elderly male, awake. VITAL SIGNS: Temperature 97.9, pulse 92, respiratory rate 22, BP 110/50. EYES: No icterus. Pupils equal and reactive. HENT: No oral thrush seen. Moist oral mucosa. NECK: Supple. No JVD or thyromegaly. LUNGS: Good air entry. No rales. No rhonchi. CARDIOVASCULAR SYSTEM: S1 and S2, regular. No murmur heard. ABDOMEN: Full, soft, nontender. Bowel sound is present. CENTRAL NERVOUS SYSTEM: Awake, alert. Bedbound debility. SKIN: No rashes. No itchiness. LYMPHATIC: No peripheral lymphadenopathy. EXTREMITIES: Pitting edema of lower extremities. No cellulitis. BACK: No deformity coccygeal area. LABORATORY DATA: Procalcitonin 4.0, sodium 131, potassium 3.6, BUN 49, creatinine 7.4. WBC 22.7, hemoglobin 9.1, platelet 103. Urine culture positive for gram-negative keshawn. Blood culture, no growth for one day. RADIOLOGY: Chest x-ray unremarkable. ASSESSMENT: An 85-year-old male admitted with fever and chills. CURRENT PROBLEMS: Include: * Gram-negative sepsis. * UTI. * End-stage renal disease, on dialysis. * Anemia. * Sacrococcygeal ulcer. * Debility. PLAN: * Continue Zosyn. * Follow up cultures. * Continue vancomycin. * Continue dialysis. * Continue antiemetic. * Continue DVT prophylaxis. * Continue wound care. * Monitor electrolyte and correct as needed. Thank you for allowing me to participate in the care of this patient. TID: [id number] RECEIPT: [id number]
[2025-05-07 13:48] LABS: PO2, ARTERIAL BG > 500.0 mmHg (83.0-108.0)
[2025-05-08 11:13] LABS: FREE KAPPA LIGHT CHAINS,S 307.6 mg/L (3.3-19.4)
[2025-05-08 14:12] LABS: ALBUMIN (IFE & ELECTROPHOR) 3.1 g/dL (2.9-4.4); ALBUMIN/GLOBULIN RATIO (IFE) 0.9 (0.7-1.7); ALPHA-1 (IFE & PEP) 0.2 g/dL (0.0-0.4); ALPHA-2 (IFE & PEP) 0.4 g/dL (0.4-1.0); BETA (IFE & ELP) 0.8 g/dL (0.7-1.3); GAMMA GLOBULINS (IFE & ELP) 2.2 g/dL (0.4-1.8); GLOBULIN TOTAL (IFE) 3.6 g/dL (2.2-3.9); IGA (IFE) 797 mg/dL (61-437); IGG (IMMUNOFIXATION) 1991 mg/dL (603-1613); IGM (IMMUNOFIXATION) 333 mg/dL (15-143); IMMUNOFIXATION RESULT Note: (.); M-SPIKE (IEP) Not Observed g/dL (Not Observed)
== END 2025-05-06 21:30 | DRG 871 ==
LOC: EDH 09:28 → EDHIP 11:37 → 2BH 05-06 16:47
PROVIDERS: ADMIT Internal Medicine; ATTEND Internal Medicine
PROC: 5A1D70Z Performance of Urinary Filtration, Intermittent, Less than 6 Hours Per Day (ICD-10-PCS; 2025-05-05)
PROC: 30233N1 Transfusion of Nonautologous Red Blood Cells into Peripheral Vein, Percutaneous Approach (ICD-10-PCS; principal; 2025-05-06)
PROC: 5A09357 Assistance with Respiratory Ventilation, Less than 24 Consecutive Hours, Continuous Positive Airway Pressure (ICD-10-PCS; 2025-05-06)
PROC: 5A12012 Performance of Cardiac Output, Single, Manual (ICD-10-PCS; 2025-05-06)
DX: A41.9 Sepsis, unspecified organism (principal); G92.8 Other toxic encephalopathy; J96.01 Acute respiratory failure with hypoxia; N18.6 End stage renal disease; R65.21 Severe sepsis with septic shock; E87.1 Hypo-osmolality and hyponatremia; E72.20 Disorder of urea cycle metabolism, unspecified; E87.21 Acute metabolic acidosis; I12.0 Hypertensive chronic kidney disease with stage 5 chronic kidney disease or end stage renal disease; I42.9 Cardiomyopathy, unspecified; I82.432 Acute embolism and thrombosis of left popliteal vein; N30.00 Acute cystitis without hematuria; Z20.822 Contact with and (suspected) exposure to COVID-19; D63.1 Anemia in chronic kidney disease; D69.6 Thrombocytopenia, unspecified; D75.89 Other specified diseases of blood and blood-forming organs; E78.5 Hyperlipidemia, unspecified; E87.6 Hypokalemia; E87.70 Fluid overload, unspecified; I46.9 Cardiac arrest, cause unspecified; E11.22 Type 2 diabetes mellitus with diabetic chronic kidney disease; R01.1 Cardiac murmur, unspecified; K75.9 Inflammatory liver disease, unspecified; R54 Age-related physical debility; R57.1 Hypovolemic shock; Z86.718 Personal history of other venous thrombosis and embolism; Z90.49 Acquired absence of other specified parts of digestive tract; Z79.899 Other long term (current) drug therapy; B96.89 Other specified bacterial agents as the cause of diseases classified elsewhere
CPT/HCPCS: 31500; 36415; 36430; 36600; 36680; 70450; 71045; 73562; 74176; 80048; 80053; 80076; 81001; 82010; 82140; 82435; 82550; 82607; 82728; 82746; 82803; 82947; 82948; 83521; 83540; 83550; 83605; 83615; 83735; 83880; 84100; 84132; 84145; 84153; 84295; 84484; 85018; 85025; 85027; 85610; 85651; 85730; 86140; 86334; 86704; 86706; 86850; 86900; 86901; 86923; 87040; 87086; 87186; 87340; 87426; 87804; 90935; 92610; 92950; 93005; 93306; 93356; 93970; 94002; 94660; 96365; 96366; 96368; 96375; 99291; G0378; J0169; J0282; J0360; J0461; J0612; J1644; J2470; J2543; J3373; J3490; J7050; J7070; P9016; J3370